=== PATIENT | female | born 1935 | race Caucasian/White ===

== ENCOUNTER 2017-11-13 09:50 | Inpatient (IN) | payer MEDICARE, MEDICAID ==
[~2017-11-13] VITALS: Ht 162.6 cm; Wt 52.7 kg
[~2017-11-13 09:50] MED LIST: CALC-758 PO; FISH OIL 1,2001 EAC1 PO; HYDR-3454 PO; LVT.1T PO; OMEP20TA2 PO; [UNRECOGNIZED DRUG - CODE] PO
[2017-11-13 11:05] VITALS: BP 162/80
[2017-11-13] MEDS ORDERED: LEVO75TA6 PO (13:17)
[2017-11-13] MEDS ORDERED: NAPR500T4 PO (13:19)
[2017-11-13] MEDS ORDERED: OMEP20CA12 PO (13:19)
[2017-11-13] MEDS ORDERED: THROMBIN SPRAY KIT 5,000 UNIT VIAL TP NR (13:45)
--- NOTE | 2017-11-13 14:35 | History & Physical-Hospitalist ---
HPI History of Present Illness: HPI/Chief Complaint The patient is an 82-year-old white female referred here from [place] emergency room. She states that this morning while drinking coffee she felt the need to cough. She coughed up blood and began to have blood dripping from the left side of her nose. This continued. The workup with the emergency room there showed the platelet count to be low. It was repeated and reported at 0. She was then referred here for further workup. She has a past history of large B cell non-Hodgkin's lymphoma. This was initially treated in [place]. She later had a recurrence with a large neck mass and was treated here by Dr. Martínez. She was last seen here by Dr. Martínez in 2014. Source: patient, family Exam Limitations: no limitations Date Seen 11/13/17 Time Seen by Provider: 14:33 Attending Physician Simone Uribe MD PCP Tian Saleh DO Referring Physician Date of Admission Nov 13, 2017 at 11:25 Home Medications & Allergies Home Medications Reviewed patient Home Medication Reconciliation Form Allergies Allergies Coded Allergies No Known Drug Allergies (Unverified12/31/12) Past Sptnzlj-Avzkzp-Yokjwf Hx Patient Social History Alcohol Use: Occasionally Uses Recreational Drug Use: No Smoking Status: Former Smoker Physical Abuse Screen: No Sexual Abuse: No Recent Foreign Travel: No Contact w/other who traveled: No Recent Hopitalizations: No Recent Infectious Disease Expo: No Immunizations Up To Date Pediatric: Yes Date of Influenza Vaccine: Jul 03, 2017 Seasonal Allergies Seasonal Allergies: No Surgeries Yes Respiratory No Currently Using CPAP: No Cardiovascular Yes (BP WENT TOO LOW WHEN TAKING MEDS-NOT TAKING MEDICATION FOR BP) Neurological No Genitourinary No Gastrointestinal No Musculoskeletal Yes (RHEUMATOID ARTHRITIS) Endocrine History of Endocrine Disorders: Yes HEENT History of HEENT Disorders: No Cancer Yes Lymphoma Cancer Comment: NON HODGKINS LYMPHOMA Psychosocial History of Psychiatric Problem: No Integumentary History of Skin or Integumenta: No Blood Transfusions History of Blood Disorders: No Family Medical History Family Hx: Asthma 19 MOTHER Review of Systems Constitutional: see HPI EENTM: no symptoms reported Respiratory: no symptoms reported Cardiovascular: no symptoms reported Gastrointestinal: no symptoms reported Genitourinary: no symptoms reported Musculoskeletal: no symptoms reported Skin: no symptoms reported Psychiatric/Neurological: No Symptoms Reported Physical Exam Physical Exam Vital Signs Vital Signs - First Documented 11/13/17 11:05 Temp 97.8 Pulse 91 Resp 20 B/P (MAP) 162/80 (107) Pulse Ox 100 O2 Delivery Room Air Capillary Refill : General Appearance: No Apparent Distress, WD/WN Eyes: Bilateral Eye Normal Inspection HEENT: Other (scant amount of crusted blood at the left there are) Neck: Full Range of Motion, Normal Inspection, Non Tender, Supple, Carotid Bruit Respiratory: Chest Non Tender, Lungs Clear, Normal Breath Sounds, No Accessory Muscle Use, No Respiratory Distress Cardiovascular: Regular Rate, Rhythm, No Edema, No Gallop, No JVD, No Murmur, Normal Peripheral Pulses Gastrointestinal: Normal Bowel Sounds, No Organomegaly, No Pulsatile Mass, Non Tender, Soft Extremity: Normal Capillary Refill, Normal Inspection, Normal Range of Motion, Non Tender, No Calf Tenderness, No Pedal Edema Neurologic/Psychiatric: Alert, Oriented x3, No Motor/Sensory Deficits, Normal Mood/Affect Skin: Normal Color, Warm/Dry Lymphatic: No Adenopathy Results Results/Procedures Lab Laboratory Tests 11/13/17 14:35 11/13/17 19:25 11/14/17 05:38 Assessment/Plan Admission Diagnosis Spontaneous epistaxis 2.extreme thrombocytopenia 3.past history of B-cell non- Hodgkin's lymphoma Assessment and Plan Hematology consultation. ENT consultation with Dr. Almaguer although the patient was not bleeding at time of examination Clinical Quality Measures DVT/VTE Risk/Contraindication: Risk Factor Score Per Nursin RFS Level Per Nursing on Admit: 2=Moderate Other: Thrombocytopenia, platelet count 0 SIMONE URIBE MD Nov 13, 2017 14:35
[2017-11-13 14:51] LABS: BASOPHILS # (AUTO) 0.1 10^3/uL (0.0-0.1); BASOPHILS % (AUTO) 1 % (0-10); EOSINOPHILS # (AUTO) 0.2 10^3/uL (0.0-0.3); EOSINOPHILS % (AUTO) 3 % (0-10); HEMATOCRIT 30 % (35-52); HEMOGLOBIN 10.3 G/DL (11.5-16.0); LYMPHOCYTES # (AUTO) 2.2 X 10^3 (1.0-4.0); LYMPHOCYTES % (AUTO) 28 % (12-44); MEAN CORPUSCULAR HEMOGLOBIN 33 PG (25-34); MEAN CORPUSCULAR HGB CONC 34 G/DL (32-36); MEAN CORPUSCULAR VOLUME 96 FL (80-99); MEAN PLATELET VOLUME 10.9 FL (7.4-10.4); MONOCYTES # (AUTO) 1.6 X 10^3 (0.0-1.0); MONOCYTES % (AUTO) 21 % (0-12); NEUTROPHILS # (AUTO) 3.6 X 10^3 (1.8-7.8); NEUTROPHILS % (AUTO) 47 % (42-75); RED BLOOD COUNT 3.15 10^6/uL (4.35-5.85); RED CELL DISTRIBUTION WIDTH 13.2 % (10.0-14.5); WHITE BLOOD COUNT 7.7 10^3/uL (4.3-11.0)
[2017-11-13 14:55] LABS: PLATELET COUNT 6 10^3/uL (130-400)
[2017-11-13 15:10] LABS: BAND NEUTROPHILS 2 %; BASOPHILS % (MANUAL) 1 %; EOSINOPHILS % (MANUAL) 4 %; LYMPHOCYTES % (MANUAL) 25 %; METAMYELOCYTES % 1 %; MONOCYTES % (MANUAL) 19 %; NEUTROPHILS % (MANUAL) 48 %; RBC MORPH NORMAL
[2017-11-13 16:00] VITALS: BP 137/86
--- NOTE | 2017-11-13 16:54 | Progress Note-Standard ---
Standard Progress Note Progress Notes/Assess & Plan Date Seen by Provider: Nov 13, 2017 Time Seen by Provider: 16:45 Progress/Assessment & Plan ENT-Jam Patient seen and evaluated Epistaxis-left anterior this am-took along time to stop platelet count 0 easy bruising and bleeding recently orthostatic sympotms for the past several months bleeding has stopped now Exam Nose-small amount of old blood seen on the left side-no active bleeding oral cavbity-clear no new or old blood would recommende ocean nasal spary to bedside to keep nose moist neosynephirne 1/2% two quirts to the side that is bleeding if it starts to bleed again if that is used then hold nose for ten minutes if still bleeding then use tw squirts of the thomrbin spary-if cant get it to sstop then call us Final Diagnosis LEft Anterior Epistaxis Thrombocytopenia History of Lymphoma DAVID CARROLL MD Nov 13, 2017 4:53 pm
[2017-11-13] MEDS ORDERED: NS IV 500 ML 500 ML IV ONE (17:00)
[2017-11-13 17:20] VITALS: BP 151/87
[2017-11-13] MEDS ORDERED: SALINE NASAL SPRAY (OCEAN) 45 ML BTL PRN (17:30)
[2017-11-13] MEDS ORDERED: PHENYLEPHRINE 0.5% NASAL SPR (NEO-SYNEPHRINE) REG PRN (17:30)
[2017-11-13 17:41] VITALS: BP 149/86
[2017-11-13 18:38] VITALS: BP 149/68
[2017-11-13 19:38] LABS: BASOPHILS # (AUTO) 0.1 10^3/uL (0.0-0.1); BASOPHILS % (AUTO) 1 % (0-10); EOSINOPHILS # (AUTO) 0.2 10^3/uL (0.0-0.3); EOSINOPHILS % (AUTO) 3 % (0-10); HEMATOCRIT 29 % (35-52); LYMPHOCYTES # (AUTO) 2.3 X 10^3 (1.0-4.0); LYMPHOCYTES % (AUTO) 25 % (12-44); MEAN CORPUSCULAR HEMOGLOBIN 33 PG (25-34); MEAN CORPUSCULAR HGB CONC 35 G/DL (32-36); MEAN CORPUSCULAR VOLUME 95 FL (80-99); MEAN PLATELET VOLUME 9.4 FL (7.4-10.4); MONOCYTES % (AUTO) 22 % (0-12); NEUTROPHILS # (AUTO) 4.7 X 10^3 (1.8-7.8); NEUTROPHILS % (AUTO) 50 % (42-75); RED BLOOD COUNT 3.05 10^6/uL (4.35-5.85); WHITE BLOOD COUNT 9.4 10^3/uL (4.3-11.0)
[2017-11-13 19:41] LABS: PLATELET COUNT 37 10^3/uL (130-400)
[2017-11-13 20:46] VITALS: BP 110/60
--- NOTE | 2017-11-13 21:45 | CONSULTATION REPORT ---
DATE OF SERVICE: 11/13/2017 REFERRING PHYSICIAN: Simone Tolbert M.D. The patient is admitted to room #419. IMPRESSION: 1. An 82-year-old female transferred from [facility] in [place] with epistaxis. 2. Preliminary CBC showing platelet count of 0. 3. Previous history of non-Hodgkin's lymphoma, T-cell rich large B-cell type initially diagnosed in 2000 requiring chemotherapy and recurrence in 2012 requiring further chemotherapy. RECOMMENDATIONS: 1. Repeat CBC with the peripheral smear for review. 2. Transfuse 1 unit of platelets because of intermittent epistaxis and marked thrombocytopenia. 3. Repeat CBC in one-half to 1 hour after platelet transfusion. 3. We will plan on obtaining a bone marrow aspiration and biopsy tomorrow morning. 4. I will follow the patient with you and make appropriate recommendations. BRIEF HISTORY: The patient is an 82-year-old female, who gave a history of increased bruising for the last few weeks and epistaxis earlier today. As the bleeding was significant, she was taken to the [facility] in [place] from where she was transferred to the emergency room at [facility] and admitted for further management. She denied any hematochezia or melena. No other episodes of significant bleeding. No history of falls. No fevers or other viral infections within the last month. Her initial CBC done at [place] had shown platelet count of 0 and hence the admission to the hospital as well as the hematology consult. PAST MEDICAL HISTORY: Significant for non-Hodgkin's lymphoma, T-cell rich large B-cell type initially diagnosed in 2000 and treated with chemotherapy in [place]. 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 Following this, she was on maintenance Rituxan for 2 years, which was completed in mid 2014. The patient did not keep any follow up appointments since then and was lost to followup. Other significant medical history include hypothyroidism diagnosed in 2010 and on replacement. Osteoarthritis for approximately 20 years. PAST SURGICAL HISTORY: Include tonsillectomy and adenoidectomy at the age of 7; appendectomy in 1970; lymph node biopsy from the left neck in 2000, when a lymphoma was first diagnosed. She underwent a TAHBSO in 2001; 2012, left neck lymph node biopsy when recurrence of lymphoma was diagnosed. FAMILY AND SOCIAL HISTORY: The patient is and lives in [place], [place]. She has 3 children, a son and 2 daughters, all of whom live close by. 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 She has used alcohol and tobacco socially for a few years when she was young. No history of recreational drug use. FAMILY HISTORY: Significant for her brother, who was diagnosed with lung cancer in she has a late 60s or 70s. No other significant malignancies in the family that the patient knows of. PHYSICAL EXAMINATION: GENERAL: Today showed an elderly female, well developed and nourished, awake and oriented, in no acute distress. HEENT: Normocephalic, extraocular muscles intact, oral mucosa moist. NECK: Supple with no JVD. No cervical, supraclavicular, axillary or inguinal lymphadenopathy palpable. CHEST: Symmetrical. LUNGS: Fairly clear to auscultation without wheezes or rales. CARDIOVASCULAR: Regular in rate and rhythm. No murmurs or gallops heard. ABDOMEN: Soft, nontender with no hepatosplenomegaly or other masses palpable. EXTREMITIES: Showed no edema. Petechiae noted in both lower extremities. A few areas of ecchymosis noted on both upper extremities and the trunk. NEUROLOGIC: Grossly intact without focal motor deficits. LABORATORY DATA: CBC done today showed WBC 7.7, hemoglobin 10.3, MCV 96, platelet count 6,000 with neutrophil count 3.6, lymphocyte count 2.2 and monocyte count 1.6. I reviewed the peripheral smear, which showed no evidence of platelet clumps. Platelets were markedly decreased with a few giant platelets noted on the smear. The neutrophils appeared unremarkable except the cytoplasm were slightly washed out. Monocytes were increased in number. No immature cells identified. Red blood cells appeared unremarkable with no evidence of hypochromia. Thank you for allowing me to participate in this patient's care. I will follow the patient with you. Job ID: [id number] DocumentID: [id number] Dictated Date: 11/13/2017 16:57:54 Law Researcher Date: 11/13/2017 21:45:39 Dictated By: ELDER DAVIS MD
[2017-11-14] VITALS: BP 120/70
[2017-11-14 04:00] VITALS: BP 120/63
[2017-11-14 06:26] LABS: BASOPHILS # (AUTO) 0.1 10^3/uL (0.0-0.1); BASOPHILS % (AUTO) 1 % (0-10); EOSINOPHILS # (AUTO) 0.3 10^3/uL (0.0-0.3); EOSINOPHILS % (AUTO) 3 % (0-10); HEMATOCRIT 27 % (35-52); HEMOGLOBIN 9.4 G/DL (11.5-16.0); LYMPHOCYTES # (AUTO) 2.1 X 10^3 (1.0-4.0); LYMPHOCYTES % (AUTO) 28 % (12-44); MEAN CORPUSCULAR HEMOGLOBIN 33 PG (25-34); MEAN CORPUSCULAR HGB CONC 34 G/DL (32-36); MEAN CORPUSCULAR VOLUME 95 FL (80-99); MEAN PLATELET VOLUME 13.2 FL (7.4-10.4); MONOCYTES # (AUTO) 1.9 X 10^3 (0.0-1.0); MONOCYTES % (AUTO) 26 % (0-12); NEUTROPHILS # (AUTO) 3.1 X 10^3 (1.8-7.8); NEUTROPHILS % (AUTO) 42 % (42-75); RED BLOOD COUNT 2.88 10^6/uL (4.35-5.85); RED CELL DISTRIBUTION WIDTH 13.3 % (10.0-14.5); WHITE BLOOD COUNT 7.5 10^3/uL (4.3-11.0)
[2017-11-14 06:28] LABS: PLATELET COUNT 15 10^3/uL (130-400)
[2017-11-14 06:54] LABS: ALANINE AMINOTRANSFERASE 21 U/L (0-55); ALKALINE PHOSPHATASE 92 U/L (40-136); BILIRUBIN,TOTAL 1.2 MG/DL (0.1-1.0); BUN/CREATININE RATIO 18; CALCIUM 9.1 MG/DL (8.5-10.1); CARBON DIOXIDE 24 MMOL/L (21-32); CHLORIDE 103 MMOL/L (98-107); CREATININE SERUM 0.82 MG/DL (0.60-1.30); GFR ESTIMATED > 60; GLUCOSE 89 MG/DL (70-105); SODIUM 139 MMOL/L (135-145); TOTAL PROTEIN 7.1 GM/DL (6.4-8.2)
[2017-11-14 08:00] VITALS: BP 144/63
--- NOTE | 2017-11-14 09:56 | Progress Note-Hospitalist ---
Standard Progress Note Progress Notes/Assess & Plan Date Seen 11/14/17 Time Seen by Provider: 09:54 Diagnosis Spontaneous epistaxis 2.extreme thrombocytopenia 3.past history of B-cell non- Hodgkin's lymphoma Assess & Plan/Chief Complaint The patient had a reasonably restful night. There is been only in minimum blood flow from the nose. She received one platelet pack which caused her platelets to rise immediately to 37,000 and they are 15,000 now. She expects to have her bone marrow done at approximately 10 o'clock this morning. We hope this will clear the issue of the thrombocytopenia. Physical exam: she is alert and oriented. She appears quite comfortable. Lungs are clear to auscultation. CV is regular. No ecchymoses are noted. Impression: Epistaxis now controlled. Thrombocytopenia. Plan: Observe. Await bone marrow biopsy. Labs Laboratory Tests 11/13/17 14:35 11/13/17 19:25 11/14/17 05:38 AMPARO URIBE MD Nov 14, 2017 09:56
[2017-11-14 12:00] VITALS: BP 144/78
[2017-11-14 13:06] LABS: ABSOLUTE RETIC # 138 10e9/L (24-90); RETICULOCYTE % 4.81 % (0.50-2.40)
[2017-11-14 14:02] LABS: EOSINOPHILS % (MANUAL) 2 %; LYMPHOCYTES % (MANUAL) 30 %; MONOCYTES % (MANUAL) 17 %; NEUTROPHILS % (MANUAL) 51 %
[2017-11-14 14:03] LABS: POLYCHROMASIA SLIGHT
[2017-11-14 16:00] VITALS: BP 144/75
--- NOTE | 2017-11-14 17:12 | Progress Note-Standard ---
Standard Progress Note Progress Notes/Assess & Plan Date Seen by Provider: Nov 14, 2017 Time Seen by Provider: 11:45 Progress/Assessment & Plan Procedure: Bone marrow aspiration and biopsy. Indication: Thrombocytopenia, history of lymphoma. The procedure, indications and complications were explained to the patient and her daughter and an informed consent was signed. Patient was placed in the left lateral decubitus position and the right posterior superior iliac spine area was prepped and draped. Local anesthesia using 2 percent Xylocaine was given. An [place] needle was passed in and an aspirate obtained on first attempt. The [place] needle was removed and a Jamshidi needle was introduced and a biopsy was obtained on first attempt also. Adequate hemostasis was obtained and sterile Band-Aid applied. Specimen was sent to the lab for appropriate testing including flow cytometry and cytogenetics. Patient tolerated the procedure well. ELDER DAVIS Nov 14, 2017 17:12
[2017-11-14 17:57] LABS: HEMATOCRIT 29 % (35-52); HEMOGLOBIN 9.9 G/DL (11.5-16.0); MEAN CORPUSCULAR HEMOGLOBIN 33 PG (25-34); MEAN CORPUSCULAR HGB CONC 34 G/DL (32-36); MEAN CORPUSCULAR VOLUME 95 FL (80-99); RED BLOOD COUNT 3.04 10^6/uL (4.35-5.85); RED CELL DISTRIBUTION WIDTH 13.2 % (10.0-14.5); WHITE BLOOD COUNT 8.3 10^3/uL (4.3-11.0)
[2017-11-14 17:59] LABS: PLATELET COUNT 12 10^3/uL (130-400)
[2017-11-14 20:00] VITALS: BP 121/59
[2017-11-15] VITALS (7 sets, daily range): BP systolic 110–143; BP diastolic 53–72
[2017-11-15 05:40] LABS: BASOPHILS # (AUTO) 0.1 10^3/uL (0.0-0.1); BASOPHILS % (AUTO) 1 % (0-10); EOSINOPHILS # (AUTO) 0.2 10^3/uL (0.0-0.3); EOSINOPHILS % (AUTO) 3 % (0-10); HEMATOCRIT 28 % (35-52); HEMOGLOBIN 9.7 G/DL (11.5-16.0); LYMPHOCYTES # (AUTO) 1.9 X 10^3 (1.0-4.0); LYMPHOCYTES % (AUTO) 26 % (12-44); MEAN CORPUSCULAR HEMOGLOBIN 32 PG (25-34); MEAN CORPUSCULAR HGB CONC 35 G/DL (32-36); MEAN CORPUSCULAR VOLUME 94 FL (80-99); MEAN PLATELET VOLUME 12.6 FL (7.4-10.4); MONOCYTES # (AUTO) 1.8 X 10^3 (0.0-1.0); MONOCYTES % (AUTO) 25 % (0-12); NEUTROPHILS # (AUTO) 3.4 X 10^3 (1.8-7.8); NEUTROPHILS % (AUTO) 46 % (42-75); RED BLOOD COUNT 2.99 10^6/uL (4.35-5.85); RED CELL DISTRIBUTION WIDTH 13.3 % (10.0-14.5); WHITE BLOOD COUNT 7.5 10^3/uL (4.3-11.0)
[2017-11-15 05:57] LABS: ALANINE AMINOTRANSFERASE 21 U/L (0-55); ALKALINE PHOSPHATASE 88 U/L (40-136); BILIRUBIN,TOTAL 1.1 MG/DL (0.1-1.0); BUN/CREATININE RATIO 16; CALCIUM 9.3 MG/DL (8.5-10.1); CARBON DIOXIDE 25 MMOL/L (21-32); CHLORIDE 99 MMOL/L (98-107); CREATININE SERUM 0.82 MG/DL (0.60-1.30); GFR ESTIMATED > 60; GLUCOSE 92 MG/DL (70-105); PLATELET COUNT 9 10^3/uL (130-400); SODIUM 132 MMOL/L (135-145)
--- NOTE | 2017-11-15 11:28 | Progress Note-Hospitalist ---
Progress Note HPI/CC on Admission The patient is an 82-year-old white female referred here from [place] emergency room. She states that this morning while drinking coffee she felt the need to cough. She coughed up blood and began to have blood dripping from the left side of her nose. This continued. The workup with the emergency room there showed the platelet count to be low. It was repeated and reported at 0. She was then referred here for further workup. She has a past history of large B cell non-Hodgkin's lymphoma. This was initially treated in [place]. She later had a recurrence with a large neck mass and was treated here by Dr. Martínez. She was last seen here by Dr. Martínez in 2014. Progress Notes/Assess & Plan Date Seen 11/15/17 Time Seen by Provider: 10:40 Diagonsis/Assessment & Plan Patient doing much better and no epistaxis Bone marrow yesterday results pending Patient is having bowel movements without blood and urinating well Needs walker No fever, vital signs stable, pleasant, improved Regular rate and rhythm, clear to auscultation bilaterally No edema Laboratory Tests 11/14/17 17:48 11/15/17 05:19 Assessment: Severe epistaxis Severe thrombocytopenia History of lymphoma managed by Dr. Martínez Hypothyroidism Anemia Hyponatremia GERD Plan: Await bone marrow results Appreciate Dr. Martínez's help BEVERLY MEZA DO Nov 15, 2017 11:28
[2017-11-15] MEDS ORDERED: PANTOPRAZOLE 20 MG TABLET (PROTONIX) PO PRN (11:45)
--- NOTE | 2017-11-15 14:27 | Progress Note-Standard ---
Standard Progress Note Progress Notes/Assess & Plan Date Seen by Provider: Nov 15, 2017 Time Seen by Provider: 14:22 Progress/Assessment & Plan 82-year-old female with history of T-cell rich large B-cell lymphoma initially diagnosed in 2000 with recurrence in 2012, status post chemotherapy on both occasions with a good response. Admitted with epistaxis and platelet count of 0 , status post platelet transfusion. Completed bone marrow evaluation yesterday. Preliminary report of bone marrow discuss with Dr. Painting. No obvious features of marrow involvement by lymphoma and no evidence of MDS currently. 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 Will start patient on prednisone 50 mg daily with food in the morning. If stable, may discharge patient home tomorrow. She will need CBCs on Mondays and at [place] with results faxed to the cancer center. She has a two- week follow-up scheduled with me to review the final bone marrow report and was instructed to keep this appointment. If she has any new or unusual symptoms prior to follow-up, she was instructed to contact us. ELDER DAVIS Nov 15, 2017 14:27
[2017-11-15] MEDS ORDERED: NS IV 500 ML 500 ML ONE (14:48)
[2017-11-15] MEDS ORDERED: predniSONE 20 MG TAB PO NR (15:30)
[2017-11-16] VITALS: BP 118/62
[2017-11-16 06:24] LABS: BASOPHILS % (AUTO) 0 % (0-10); EOSINOPHILS # (AUTO) 0.1 10^3/uL (0.0-0.3); EOSINOPHILS % (AUTO) 1 % (0-10); HEMATOCRIT 27 % (35-52); HEMOGLOBIN 9.6 G/DL (11.5-16.0); LYMPHOCYTES # (AUTO) 1.6 X 10^3 (1.0-4.0); LYMPHOCYTES % (AUTO) 19 % (12-44); MEAN CORPUSCULAR HEMOGLOBIN 33 PG (25-34); MEAN CORPUSCULAR HGB CONC 35 G/DL (32-36); MEAN CORPUSCULAR VOLUME 93 FL (80-99); MEAN PLATELET VOLUME 12.8 FL (7.4-10.4); MONOCYTES # (AUTO) 0.9 X 10^3 (0.0-1.0); MONOCYTES % (AUTO) 10 % (0-12); NEUTROPHILS % (AUTO) 70 % (42-75); PLATELET COUNT 50 10^3/uL (130-400); RED BLOOD COUNT 2.93 10^6/uL (4.35-5.85); RED CELL DISTRIBUTION WIDTH 13.6 % (10.0-14.5); WHITE BLOOD COUNT 8.6 10^3/uL (4.3-11.0)
[2017-11-16] MEDS ORDERED: predniSONE 20 MG TAB PO SCH (07:00)
[2017-11-16 07:02] LABS: ALANINE AMINOTRANSFERASE 20 U/L (0-55); ALBUMIN 4.1 GM/DL (3.2-4.5); ALKALINE PHOSPHATASE 85 U/L (40-136); BILIRUBIN,TOTAL 0.6 MG/DL (0.1-1.0); BUN/CREATININE RATIO 18; CALCIUM 9.2 MG/DL (8.5-10.1); CARBON DIOXIDE 21 MMOL/L (21-32); CHLORIDE 98 MMOL/L (98-107); CREATININE SERUM 0.79 MG/DL (0.60-1.30); GFR ESTIMATED > 60; GLUCOSE 135 MG/DL (70-105); POTASSIUM 4.7 MMOL/L (3.6-5.0); SODIUM 133 MMOL/L (135-145); TOTAL PROTEIN 7.4 GM/DL (6.4-8.2)
[2017-11-16 08:00] VITALS: BP 139/69
[2017-11-16] MEDS ORDERED: LEVOTHYROXINE 75 MCG (LEVOTHROID) TABLET PO SCH (09:00)
[2017-11-16] MEDS ORDERED: PRED10TA22 PO (10:55)
--- NOTE | 2017-11-16 10:59 | Discharge Summary-Hospitalist ---
Diagnosis/Chief Complaint Date of Admission Nov 13, 2017 at 11:25 Date of Discharge Discharge Date: Nov 16, 2017 Admission Diagnosis Spontaneous epistaxis 2.extreme thrombocytopenia 3.past history of B-cell non- Hodgkin's lymphoma Discharge Diagnosis Assessment: Severe epistaxis Severe thrombocytopenia likley ITP History of lymphoma managed by Dr. Martínez Hypothyroidism Anemia Hyponatremia GERD Plan: Await bone marrow results Appreciate Dr. Martínez's help Discharge Summary Discharge Physical Examination Allergies: Coded Allergies: No Known Drug Allergies (Unverified , 12/31/12) Vitals & I&Os Vital Signs Date Time Temp Pulse Resp B/P (MAP) Pulse Ox O2 Delivery O2 Flow Rate FiO2 11/16/17 08:00 97.1 99 18 139/69 (92) 100 Room Air Hospital Course Hospital course: Patient was transferred for severe epistaxis Dr. Almaguer was consulted and thrombocytopenia was noted to be [address] Martínez was consulted since he was familiar with the patient due to lymphoma in 2011. Bone marrow biopsy was obtained prednisone was empirically initiated with good results with platelets of 50,000 at time of discharge. She reports that she was eating and drinking no further epistaxis or blood in the stool or urine and she was able to walk around and requested a walker which social worker aide arranged. She will have a CBC done every Monday and [facility] and obtain an appointment with Dr. Vargas for follow-up in 2 weeks for bone marrow results. Laboratory Tests 11/16/17 05:35 Labs (last 24 hrs) Laboratory Tests 11/16/17 05:35: White Blood Count 8.6, Red Blood Count 2.93L, Hemoglobin 9.6L, Hematocrit 27L, Mean Corpuscular Volume 93, Mean Corpuscular Hemoglobin 33, Mean Corpuscular Hemoglobin Concent 35, Red Cell Distribution Width 13.6, Platelet Count 50L, Mean Platelet Volume 12.8H, Neutrophils (%) (Auto) 70, Lymphocytes (%) (Auto) 19 , Monocytes (%) (Auto) 10, Eosinophils (%) (Auto) 1, Basophils (%) (Auto) 0, Neutrophils # (Auto) 6.0, Lymphocytes # (Auto) 1.6, Monocytes # (Auto) 0.9, Eosinophils # (Auto) 0.1, Basophils # (Auto) 0.0, Sodium Level 133L, Potassium Level 4.7, Chloride Level 98, Carbon Dioxide Level 21, Anion Gap 14, Blood Urea Nitrogen 14, Creatinine 0.79, Estimat Glomerular Filtration Rate > 60, BUN/ Creatinine Ratio 18, Glucose Level 135H, Calcium Level 9.2, Total Bilirubin 0.6 , Aspartate Amino Transf (AST/SGOT) 33, Alanine Aminotransferase (ALT/SGPT) 20, Alkaline Phosphatase 85, Total Protein 7.4, Albumin 4.1 Pending Labs Laboratory Tests 11/16/17 05:35: White Blood Count 8.6, Red Blood Count 2.93, Hemoglobin 9.6, Hematocrit 27, Mean Corpuscular Volume 93, Mean Corpuscular Hemoglobin 33, Mean Corpuscular Hemoglobin Concent 35, Red Cell Distribution Width 13.6, Platelet Count 50, Mean Platelet Volume 12.8, Neutrophils (%) (Auto) 70, Lymphocytes (%) (Auto) 19 , Monocytes (%) (Auto) 10, Eosinophils (%) (Auto) 1, Basophils (%) (Auto) 0, Neutrophils # (Auto) 6.0, Lymphocytes # (Auto) 1.6, Monocytes # (Auto) 0.9, Eosinophils # (Auto) 0.1, Basophils # (Auto) 0.0, Sodium Level 133, Potassium Level 4.7, Chloride Level 98, Carbon Dioxide Level 21, Anion Gap 14, Blood Urea Nitrogen 14, Creatinine 0.79, Estimat Glomerular Filtration Rate > 60, BUN/ Creatinine Ratio 18, Glucose Level 135, Calcium Level 9.2, Total Bilirubin 0.6, Aspartate Amino Transf (AST/SGOT) 33, Alanine Aminotransferase (ALT/SGPT) 20, Alkaline Phosphatase 85, Total Protein 7.4, Albumin 4.1 Discharge Home Medications: Active Scripts Active Prednisone 10 Mg Tab.ds.pk 50 Mg PO DAILY Take 6 tabs(60mg)daily,decrease by 1 tab(10mg)every other day. Reported Omeprazole 20 Mg Capsule.dr 20 Mg PO DAILY PRN Naproxen 500 Mg Tablet 500 Mg PO BID PRN Levothyroxine Sodium 75 Mcg Tablet 75 Mcg PO DAILY Instructions to patient/family Please see electronic discharge instructions given to patient. Clinical Quality Measures DVT/VTE Risk/Contraindication: Risk Factor Score Per Nursin RFS Level Per Nursing on Admit: 2=Moderate Other: Thrombocytopenia, platelet count 0 BEVERLY MEZA DO Nov 16, 2017 10:59
[2017-11-16 13:30] VITALS: BP 138/78
== END 2017-11-16 13:30 | disposition home or self-care (01) | DRG 813 ==
LOC: 4TH 11:25
PROVIDERS: ADMIT Internal Medicine; ATTEND Internal Medicine
PROC: 079T3ZX Drainage of Bone Marrow, Percutaneous Approach, Diagnostic (ICD-10-PCS; principal; 2017-11-14)
PROC: 07DR3ZX Extraction of Iliac Bone Marrow, Percutaneous Approach, Diagnostic (ICD-10-PCS; 2017-11-14)
DX: D69.3 Immune thrombocytopenic purpura (principal); R04.2 Hemoptysis; R04.0 Epistaxis; C83.31 Diffuse large B-cell lymphoma, lymph nodes of head, face, and neck; E87.1 Hypo-osmolality and hyponatremia; D64.9 Anemia, unspecified; K21.9 Gastro-esophageal reflux disease without esophagitis; M06.9 Rheumatoid arthritis, unspecified; E03.9 Hypothyroidism, unspecified; M19.91 Primary osteoarthritis, unspecified site; Z87.891 Personal history of nicotine dependence; Z92.21 Personal history of antineoplastic chemotherapy
CPT/HCPCS: 36415; 80053; 83615; 85007; 85025; 85027; 85045; 86900; 86901; 93005

== ENCOUNTER 2018-02-21 08:38 | Outpatient (RCR) | payer MEDICARE, MEDICAID ==
[2017-12-11 11:12] LABS: BASOPHILS % (AUTO) 0 % (0-10); EOSINOPHILS % (AUTO) 0 % (0-10); HEMATOCRIT 39 % (35-52); LYMPHOCYTES % (AUTO) 16 % (12-44); MEAN CORPUSCULAR HEMOGLOBIN 32 PG (25-34); MEAN CORPUSCULAR HGB CONC 34 G/DL (32-36); MEAN CORPUSCULAR VOLUME 97 FL (80-99); MEAN PLATELET VOLUME 9.6 FL (7.4-10.4); MONOCYTES # (AUTO) 0.5 X 10^3 (0.0-1.0); MONOCYTES % (AUTO) 4 % (0-12); NEUTROPHILS # (AUTO) 10.1 X 10^3 (1.8-7.8); NEUTROPHILS % (AUTO) 80 % (42-75); PLATELET COUNT 183 10^3/uL (130-400); RED BLOOD COUNT 4.01 10^6/uL (4.35-5.85); RED CELL DISTRIBUTION WIDTH 13.7 % (10.0-14.5); WHITE BLOOD COUNT 12.6 10^3/uL (4.3-11.0)
[2017-12-11 11:36] LABS: ALANINE AMINOTRANSFERASE 12 U/L (0-55); ALBUMIN 4.4 GM/DL (3.2-4.5); ALKALINE PHOSPHATASE 66 U/L (40-136); BILIRUBIN,TOTAL 0.7 MG/DL (0.1-1.0); BUN/CREATININE RATIO 26; CALCIUM 9.5 MG/DL (8.5-10.1); CARBON DIOXIDE 32 MMOL/L (21-32); CHLORIDE 99 MMOL/L (98-107); CREATININE SERUM 0.89 MG/DL (0.60-1.30); GFR ESTIMATED > 60; GLUCOSE 114 MG/DL (70-105); POTASSIUM 4.4 MMOL/L (3.6-5.0); SODIUM 137 MMOL/L (135-145); TOTAL PROTEIN 7.1 GM/DL (6.4-8.2)
[2017-12-25 09:35] LABS: BASOPHILS % (AUTO) 0 % (0-10); EOSINOPHILS # (AUTO) 0.1 10^3/uL (0.0-0.3); EOSINOPHILS % (AUTO) 1 % (0-10); HEMATOCRIT 35 % (35-52); LYMPHOCYTES # (AUTO) 2.3 X 10^3 (1.0-4.0); LYMPHOCYTES % (AUTO) 24 % (12-44); MEAN CORPUSCULAR HEMOGLOBIN 33 PG (25-34); MEAN CORPUSCULAR HGB CONC 34 G/DL (32-36); MEAN CORPUSCULAR VOLUME 96 FL (80-99); MONOCYTES # (AUTO) 1.4 X 10^3 (0.0-1.0); MONOCYTES % (AUTO) 14 % (0-12); NEUTROPHILS # (AUTO) 5.9 X 10^3 (1.8-7.8); NEUTROPHILS % (AUTO) 61 % (42-75); PLATELET COUNT 153 10^3/uL (130-400); RED BLOOD COUNT 3.67 10^6/uL (4.35-5.85); RED CELL DISTRIBUTION WIDTH 13.7 % (10.0-14.5); WHITE BLOOD COUNT 9.7 10^3/uL (4.3-11.0)
[2017-12-25 10:31] LABS: ALANINE AMINOTRANSFERASE 15 U/L (0-55); ALKALINE PHOSPHATASE 65 U/L (40-136); BILIRUBIN,TOTAL 0.6 MG/DL (0.1-1.0); BUN/CREATININE RATIO 25; CALCIUM 9.3 MG/DL (8.5-10.1); CARBON DIOXIDE 32 MMOL/L (21-32); CHLORIDE 102 MMOL/L (98-107); CREATININE SERUM 0.81 MG/DL (0.60-1.30); GFR ESTIMATED > 60; GLUCOSE 98 MG/DL (70-105); POTASSIUM 4.7 MMOL/L (3.6-5.0); SODIUM 140 MMOL/L (135-145)
[2018-01-24 09:36] LABS: BASOPHILS % (AUTO) 1 % (0-10); EOSINOPHILS # (AUTO) 0.1 10^3/uL (0.0-0.3); EOSINOPHILS % (AUTO) 2 % (0-10); HEMATOCRIT 36 % (35-52); LYMPHOCYTES # (AUTO) 3.1 X 10^3 (1.0-4.0); LYMPHOCYTES % (AUTO) 35 % (12-44); MEAN CORPUSCULAR HEMOGLOBIN 31 PG (25-34); MEAN CORPUSCULAR HGB CONC 34 G/DL (32-36); MEAN CORPUSCULAR VOLUME 92 FL (80-99); MEAN PLATELET VOLUME 10.5 FL (7.4-10.4); MONOCYTES # (AUTO) 2.1 X 10^3 (0.0-1.0); MONOCYTES % (AUTO) 24 % (0-12); NEUTROPHILS # (AUTO) 3.3 X 10^3 (1.8-7.8); NEUTROPHILS % (AUTO) 38 % (42-75); PLATELET COUNT 100 10^3/uL (130-400); RED BLOOD COUNT 3.86 10^6/uL (4.35-5.85); RED CELL DISTRIBUTION WIDTH 13.4 % (10.0-14.5); WHITE BLOOD COUNT 8.6 10^3/uL (4.3-11.0)
[2018-01-24 10:01] LABS: ALANINE AMINOTRANSFERASE 11 U/L (0-55); ALBUMIN 4.1 GM/DL (3.2-4.5); ALKALINE PHOSPHATASE 90 U/L (40-136); BILIRUBIN,TOTAL 0.8 MG/DL (0.1-1.0); BUN/CREATININE RATIO 17; CALCIUM 9.3 MG/DL (8.5-10.1); CARBON DIOXIDE 25 MMOL/L (21-32); CHLORIDE 103 MMOL/L (98-107); CREATININE SERUM 0.83 MG/DL (0.60-1.30); GFR ESTIMATED > 60; GLUCOSE 102 MG/DL (70-105); SODIUM 138 MMOL/L (135-145)
[~2018-02-21 08:38] MED LIST changes: +LEVO75TA6 PO; +NAPR-915 PO; +OMEP20CA12 PO; +PRED10TA22 PO
[2018-02-21 08:59] LABS: BASOPHILS # (AUTO) 0.1 10^3/uL (0.0-0.1); BASOPHILS % (AUTO) 1 % (0-10); EOSINOPHILS # (AUTO) 0.2 10^3/uL (0.0-0.3); EOSINOPHILS % (AUTO) 2 % (0-10); HEMATOCRIT 35 % (35-52); HEMOGLOBIN 11.6 G/DL (11.5-16.0); LYMPHOCYTES # (AUTO) 3.4 X 10^3 (1.0-4.0); LYMPHOCYTES % (AUTO) 43 % (12-44); MEAN CORPUSCULAR HEMOGLOBIN 31 PG (25-34); MEAN CORPUSCULAR HGB CONC 33 G/DL (32-36); MEAN CORPUSCULAR VOLUME 92 FL (80-99); MEAN PLATELET VOLUME 10.6 FL (7.4-10.4); MONOCYTES # (AUTO) 1.7 X 10^3 (0.0-1.0); MONOCYTES % (AUTO) 22 % (0-12); NEUTROPHILS # (AUTO) 2.5 X 10^3 (1.8-7.8); NEUTROPHILS % (AUTO) 32 % (42-75); PLATELET COUNT 129 10^3/uL (130-400); RED BLOOD COUNT 3.79 10^6/uL (4.35-5.85); RED CELL DISTRIBUTION WIDTH 13.8 % (10.0-14.5); WHITE BLOOD COUNT 7.9 10^3/uL (4.3-11.0)
[2018-02-21 09:25] LABS: ALANINE AMINOTRANSFERASE 8 U/L (0-55); ALBUMIN 4.3 GM/DL (3.2-4.5); ALKALINE PHOSPHATASE 83 U/L (40-136); BILIRUBIN,TOTAL 0.7 MG/DL (0.1-1.0); BUN/CREATININE RATIO 21; CALCIUM 9.4 MG/DL (8.5-10.1); CARBON DIOXIDE 27 MMOL/L (21-32); CHLORIDE 105 MMOL/L (98-107); CREATININE SERUM 0.84 MG/DL (0.60-1.30); GFR ESTIMATED > 60; GLUCOSE 96 MG/DL (70-105); POTASSIUM 4.1 MMOL/L (3.6-5.0); SODIUM 141 MMOL/L (135-145); TOTAL PROTEIN 7.3 GM/DL (6.4-8.2)
== END 2018-02-26 | disposition home or self-care (01) ==
LOC: ONC 08:38
PROVIDERS: ATTEND Internal Medicine Hematology & Oncology
DX: D69.3 Immune thrombocytopenic purpura (principal); Z85.72 Personal history of non-Hodgkin lymphomas; E03.9 Hypothyroidism, unspecified; K21.9 Gastro-esophageal reflux disease without esophagitis; M19.91 Primary osteoarthritis, unspecified site; Z79.52 Long term (current) use of systemic steroids; Z79.899 Other long term (current) drug therapy; Z92.21 Personal history of antineoplastic chemotherapy
CPT/HCPCS: 36415; 80053; 83615; 85025; 99213

== ENCOUNTER 2018-06-13 08:52 | Outpatient (RCR) | payer MEDICARE, MEDICAID ==
[2018-06-13 09:16] LABS: BASOPHILS % (AUTO) 0 % (0-10); EOSINOPHILS # (AUTO) 0.1 10^3/uL (0.0-0.3); EOSINOPHILS % (AUTO) 1 % (0-10); HEMATOCRIT 37 % (35-52); HEMOGLOBIN 12.5 G/DL (11.5-16.0); LYMPHOCYTES # (AUTO) 2.8 X 10^3 (1.0-4.0); LYMPHOCYTES % (AUTO) 42 % (12-44); MEAN CORPUSCULAR HEMOGLOBIN 31 PG (25-34); MEAN CORPUSCULAR HGB CONC 34 G/DL (32-36); MEAN CORPUSCULAR VOLUME 91 FL (80-99); MEAN PLATELET VOLUME 10.3 FL (7.4-10.4); MONOCYTES # (AUTO) 1.8 X 10^3 (0.0-1.0); MONOCYTES % (AUTO) 26 % (0-12); NEUTROPHILS % (AUTO) 30 % (42-75); PLATELET COUNT 154 10^3/uL (130-400); RED BLOOD COUNT 4.08 10^6/uL (4.35-5.85); RED CELL DISTRIBUTION WIDTH 14.4 % (10.0-14.5); WHITE BLOOD COUNT 6.7 10^3/uL (4.3-11.0)
[2018-06-13 09:34] LABS: ALANINE AMINOTRANSFERASE 12 U/L (0-55); ALBUMIN 4.6 GM/DL (3.2-4.5); ALKALINE PHOSPHATASE 86 U/L (40-136); BILIRUBIN,TOTAL 0.8 MG/DL (0.1-1.0); BUN/CREATININE RATIO 17; CALCIUM 9.8 MG/DL (8.5-10.1); CARBON DIOXIDE 26 MMOL/L (21-32); CHLORIDE 102 MMOL/L (98-107); CREATININE SERUM 0.89 MG/DL (0.60-1.30); GFR ESTIMATED > 60; GLUCOSE 96 MG/DL (70-105); POTASSIUM 4.3 MMOL/L (3.6-5.0); SODIUM 136 MMOL/L (135-145); TOTAL PROTEIN 7.8 GM/DL (6.4-8.2)
== END 2018-07-01 | disposition home or self-care (01) ==
LOC: ONC 08:52
PROVIDERS: ATTEND Internal Medicine Hematology & Oncology
DX: D69.3 Immune thrombocytopenic purpura (principal); Z85.72 Personal history of non-Hodgkin lymphomas; D72.821 Monocytosis (symptomatic); K21.9 Gastro-esophageal reflux disease without esophagitis; E03.9 Hypothyroidism, unspecified
CPT/HCPCS: 36415; 80053; 83615; 85025; 99213

== ENCOUNTER → 2018-06-21 | Outpatient (CLI) | payer MEDICARE, MEDICAID ==
[~2018-06-21] MED LIST changes: +BARIUM SUSPENSION 2.1% (VANILLA SILQ) 450 ML PO ONE; +IOHEXOL 350 MG/ML 100 ML (OMNIPAQUE 350) VIAL IV ONE; +NS 250 ML (IVPB) BAG IV ONE
--- NOTE | 2018-06-21 15:27 | Diagnostic Imaging Report ---
PROCEDURE: CT chest with contrast, CT abdomen and pelvis with and without contrast. TECHNIQUE: Pre and post intravenous contrast axial imaging of the abdomen and pelvis and post contrast axial imaging of the chest were performed. INDICATION: Large cell lymphoma. FINDINGS: The previous CT chest, abdomen, and pelvis exam of 05/04/2015 failed to show any sign of an acute abnormality or of neoplastic disease. The images through the thorax show that in the interval since the prior exam, a few lymph nodes have developed within the pretracheal region of the mediastinum. The largest of these is on the left and measures 0.8 x 1.6 cm. There is also a pretracheal node on the right measuring 0.8 x 1.8 cm. Several lymph nodes have also developed in each axilla. The largest node on the right measures 1.2 x 1.9 cm while the largest node on the left is estimated to be 1.3 x 2.2 CM. However, this node is primarily replaced by fat. There are also a few nodes in each supraclavicular region. These measure less than 1 cm in size, however. There is no significant periaortic, retroperitoneal, iliac chain, or inguinal adenopathy noted, however. The heart size is within normal limits. There does not appear to be any significant coronary artery calcifications. The aorta is not abnormally dilated, and there is no sign of a dissection. There is no defect within the pulmonary arteries to indicate a pulmonary embolus. The lungs are generally clear. There is scar formation in both lung apices. There is no obvious breast mass. The thyroid gland is unremarkable. The spleen is more prominent than on the prior exam and now measures 11.5 cm in length as opposed to 9.1 cm previously. The liver, pancreas, adrenals, kidneys, gallbladder, aorta, and inferior vena cava are unremarkable for an acute abnormality. The stomach is partially filled with oral contrast and consequently difficult to evaluate. There is diverticulosis of the sigmoid and descending colon, but there is no sign of acute diverticulitis. The urinary bladder is grossly unremarkable. The uterus appears to be surgically absent. The appendix was not well visualized, but there are no indirect signs of acute appendicitis. The bone windows show no evidence for a fracture or for a destructive lesion. There is degenerative disc and bony disease throughout the lumbar spine. IMPRESSION: 1. There are a few borderline enlarged lymph nodes in the mediastinum and both axillary regions. These nodes are nonspecific in appearance but could be involved by neoplasm. The spleen is also more prominent than on the prior exam. If further imaging for neoplasm is desired, then a PET/CT would be recommended. 2. There is no acute abnormality of the chest, abdomen, or pelvis. Dictated by: Dictated on workstation # [id number]
== END ==
LOC: RAD 09:50
PROVIDERS: ATTEND Internal Medicine Hematology & Oncology
DX: C85.80 Other specified types of non-Hodgkin lymphoma, unspecified site (principal)
CPT/HCPCS: 71260; 74178

== ENCOUNTER 2018-07-06 06:38 | Outpatient (CLI) | payer MEDICARE, MEDICAID ==
[~2018-07-06] VITALS: Ht 162.6 cm; Wt 49.5 kg
[~2018-07-06 06:38] MED LIST changes: -BARIUM SUSPENSION 2.1% (VANILLA SILQ) 450 ML PO ONE; -IOHEXOL 350 MG/ML 100 ML (OMNIPAQUE 350) VIAL IV ONE; -NS 250 ML (IVPB) BAG IV ONE
[2018-07-06] MEDS ORDERED: OMEP20TA7 PO (12:02)
[2018-07-06] MEDS ORDERED: MECL-133 PO (12:02)
== END 2018-07-06 12:28 | disposition home or self-care (01) ==
LOC: PREOP 06:38
PROVIDERS: ATTEND Surgery
DX: Z01.818 Encounter for other preprocedural examination (principal)

== ENCOUNTER 2018-07-11 09:46 | Day surgery (SDC) | payer MEDICARE, MEDICAID ==
[~2018-07-11] VITALS: Ht 162.6 cm; Wt 49.5 kg
[~2018-07-11 09:46] MED LIST changes: +MECL-133 PO; +OMEP20TA7 PO
--- OUTSIDE RECORDS SUMMARY | 2018-07-11 09:49 | XMS REPORT ---
Author Author MIGEL REECE [facility] Address [address] [place] [address] Care Team Providers Care Knowledge Analyst Name Role Phone MIGEL REECE Unavailable PROBLEMS Unknown Problems ALLERGIES No Known Allergies ENCOUNTERS Encounter Location Date Diagnosis [id number] [id number] Jun, Dental examination Z01.[address] [id number] [id number] May, Dental examination Z01.20 [id number] [id number] May, Encounter for dental examination and cleaning without abnormal findings Z01.[id number] [id number] Apr, Encounter for dental examination and cleaning without abnormal findings Z01.20 [id number] [id number] Jul, Encounter for dental examination and cleaning without abnormal findings Z01.[address] [id number] [id number] May, Encounter for dental examination Z01.20 [id number] [facility] [id number] [id number] Nov, Encounter for dental examination and cleaning without abnormal findings Z01.20 [id number] [facility] [id number] [id number] Apr, Dental examination V72.2 IMMUNIZATIONS No Known Immunizations SOCIAL HISTORY Never Assessed REASON FOR VISIT restorative PLAN OF CARE Activity Details Follow Up prn Reason:buildup VITAL SIGNS Blood pressure systolic 132 mmHg 2017-05-23 Blood pressure diastolic 74 mmHg 2017-05-23 MEDICATIONS Medication Instructions Dosage Frequency Start Date End Date Duration Status Nortriptyline HCl Active Levothyroxine Sodium Active RESULTS No Results PROCEDURES Procedure Date Ordered Result Body Site RESIN COMPOS - ONE SURFACE ANTERIOR May 23, 2017 Billing Notes on claim May 23, 2017 INSTRUCTIONS MEDICATIONS ADMINISTERED No Known Medications MEDICAL (GENERAL) HISTORY Type Description Date Medical History thyroid Medical History arthritis Medical History cancer in 2001 and 2011 with radiation and chemo to treat
--- OUTSIDE RECORDS SUMMARY | 2018-07-11 09:49 | XMS REPORT ---
Author Author MIGEL REECE [facility] Address [address] [place] [address] Care Team Providers Care Tip Fixer Name Role Phone REECE MIGEL Unavailable PROBLEMS Unknown Problems ALLERGIES No Known Allergies ENCOUNTERS Encounter Location Date Diagnosis [id number] [id number] Jun, Dental examination Z01.20 [id number] [id number] May, Dental examination Z01.20 [address] [id number] May, Encounter for dental examination and cleaning without abnormal findings Z01.20 [id number] [id number] Apr, Encounter for dental examination and cleaning without abnormal findings Z01.20 [id number] [id number] Jul, Encounter for dental examination and cleaning without abnormal findings Z01.[address] [id number] [id number] May, Encounter for dental examination Z01.20 [id number] [facility] [id number] [id number] Nov, Encounter for dental examination and cleaning without abnormal findings Z01.20 [id number] [facility] [id number] [id number] Apr, Dental examination V72.2 IMMUNIZATIONS No Known Immunizations SOCIAL HISTORY Never Assessed REASON FOR VISIT build up PLAN OF CARE Activity Details Follow Up prn Reason:TE #13 VITAL SIGNS Blood pressure systolic 134 mmHg 2017-06-06 Blood pressure diastolic 77 mmHg 2017-06-06 MEDICATIONS Medication Instructions Dosage Frequency Start Date End Date Duration Status Nortriptyline HCl Active Levothyroxine Sodium Active RESULTS No Results PROCEDURES Procedure Date Ordered Result Body Site SEDATIVE FILLING Jun 06, 2017 Billing Notes on claim Jun 06, 2017 INSTRUCTIONS MEDICATIONS ADMINISTERED No Known Medications MEDICAL (GENERAL) HISTORY Type Description Date Medical History thyroid Medical History arthritis Medical History cancer in 2001 and 2011 with radiation and chemo to treat
--- OUTSIDE RECORDS SUMMARY | 2018-07-11 09:49 | XMS REPORT ---
Author Author KARLI MEDINA Organization [employer] Address Unknown Phone Unavailable Care Team Providers Care Fire Alarm Mechanic Name Role Phone KARLI MEDINA CP Unavailable Allergies, Adverse Reactions, Alerts Substance Reaction Event Type N.K.D.A. Info Not Available Non Drug Allergy Problems Problem Type Condition Code Onset Dates Condition Status Assessment Encounter for dental examination and cleaning without abnormal findings Z01.20 Active Problem Encounter for dental examination and cleaning without abnormal findings Z01.20 Active Medications Medication Code System Code Instructions Start Date End Date Status Dosage Levothyroxine Sodium [facility] [address]-23 not defined Nortriptyline HCl [facility] [address]-95 not defined Procedures Procedure Coding System Code Date VERTICAL BITEWINGS - 7 TO 8 FILMS CPT-4 D0277 December 16, 2015 Periodontal maint procedures CPT-4 D4910 December 16, 2015 PERIODIC ORAL EXAMINATION CPT-4 D0120 December 16, 2015 Vital Signs Date/Time: December 16, 2015 Blood Pressure Diastolic 80 mmHg Blood Pressure Systolic 142 mmHg Cardiac Monitoring Heart Rate 83 bpm Results No Known Results Summary Purpose [employer] Submission
--- OUTSIDE RECORDS SUMMARY | 2018-07-11 09:49 | XMS REPORT ---
Author Author KENIA RODRIGUEZ [employer] Address Unknown Phone Unavailable Care Team Providers Care Electrocardiograph Repairer Name Role Phone KENIA RODRIGUEZ CP Unavailable Allergies, Adverse Reactions, Alerts Substance Reaction Event Type N.K.D.A. Info Not Available Non Drug Allergy Problems Problem Type Condition Code Onset Dates Condition Status Assessment Encounter for dental examination Z01.20 Active Problem Encounter for dental examination and cleaning without abnormal findings Z01.20 Active Medications Medication Code System Code Instructions Start Date End Date Status Dosage Levothyroxine Sodium [facility] [address]-52 not defined Nortriptyline HCl [facility] [address]-38 not defined Procedures Procedure Coding System Code Date Billing Notes on claim CPT-4 EC109 May 23, 2016 [facility] SURFACE PRIMARY/PERM CPT-4 D2140 May 23, 2016 Vital Signs Date/Time: May 23, 2016 Blood Pressure Diastolic 80 mmHg Blood Pressure Systolic 145 mmHg Cardiac Monitoring Heart Rate 83 bpm Results No Known Results Summary Purpose [employer] Submission
--- OUTSIDE RECORDS SUMMARY | 2018-07-11 09:51 | XMS REPORT | Continuity of Care Document ---
Author Author [facility] Organization [facility] Address Unknown Phone Unavailable Allergies Active Description Code Type Severity Reaction Onset Reported/Identified Relationship to Patient Clinical Status Yes No Known Drug Allergies [id number] Drug Allergy Unknown N/A 07/06/2018 Medications There is no data. Problems Date Dx Coded Attending Type Code Diagnosis Diagnosed By 01/03/2013 Ot 785.6 ENLARGEMENT LYMPH NODES 01/03/2013 Ot V10.79 HX- LYMPHATIC MALIGN NEC 04/23/2013 RYAN, BOBAN N Ot 202.80 OTH LYMPHOMAS EXTRANODAL SOLID ORGAN U 08/13/2013 RYAN, BOBAN N Ot 202.80 OTH LYMPHOMAS EXTRANODAL SOLID ORGAN U 08/13/2013 RYAN, BOBAN N Ot V58.11 ENCOUNTER FOR ANTINEOPLASTIC CHEMOTHERAP 12/03/2013 RYAN, BOBAN N Ot 202.80 OTH LYMPHOMAS EXTRANODAL SOLID ORGAN U 12/03/2013 RYAN, BOBAN N Ot V58.11 ENCOUNTER FOR ANTINEOPLASTIC CHEMOTHERAP 03/26/2014 RYAN, BOBAN N Ot 202.80 OTH LYMPHOMAS EXTRANODAL SOLID ORGAN U 03/26/2014 RYAN, BOBAN N Ot V58.11 ENCOUNTER FOR ANTINEOPLASTIC CHEMOTHERAP 07/13/2014 RYAN, BOBAN N Ot 202.80 OTH LYMPHOMAS EXTRANODAL SOLID ORGAN U 07/13/2014 RYAN, BOBAN N Ot V58.11 ENCOUNTER FOR ANTINEOPLASTIC CHEMOTHERAP 10/01/2014 RYNA, BOBAN N Ot 202.80 10/01/2014 RYAN, BOBAN N Ot V04.81 10/01/2014 RYAN, BOBAN N Ot V58.11 10/22/2014 RYAN, BOBAN N Ot 202.80 10/22/2014 RYAN, BOBAN N Ot V04.81 10/22/2014 RYAN, BOBAN N Ot V58.11 10/30/2014 ESTHER CHAN Ot 202.80 10/30/2014 CHANESTHER Steele JUNIOR PROGRAMMER ANALYST Ot V58.69 10/30/2014 CHAN ESTHER Steele JUNIOR PROGRAMMER ANALYST Ot V87.41 11/02/2014 RYAN, ELDER N Ot 202.80 OTH LYMPHOMAS EXTRANODAL SOLID ORGAN U 11/02/2014 RYANSCOTT GREENWOODAN N Ot V04.81 ND FOR PROPHYLACTIC VACCIN AND INOCULATI 11/02/2014 RYANELDER GREENWOOD N Ot V58.11 ENCOUNTER FOR ANTINEOPLASTIC CHEMOTHERAP 11/06/2014 CHANESTHER Steele JUNIOR PROGRAMMER ANALYST Ot 202.80 11/06/2014 CHANESTHER Steele JUNIOR PROGRAMMER ANALYST Ot V58.69 11/06/2014 DUSTIN ESTHER Cedric JUNIOR PROGRAMMER ANALYST Ot V87.41 11/17/2014 RYANSCOTTAN N Ot 202.80 11/17/2014 RYAN, BOBAN N Ot V04.81 11/17/2014 RYAN, BOBAN N Ot V58.11 11/24/2014 RYAN, BOBAN N Ot 202.80 11/24/2014 RYAN, BOBAN N Ot V04.81 11/24/2014 RYAN, BOBAN N Ot V58.11 11/25/2014 RYAN, BOBAN N Ot 202.80 11/25/2014 RYAN, BOBAN N Ot V04.81 11/25/2014 RYAN, BOBAN N Ot V58.11 12/30/2014 RYAN, BOBAN N Ot 202.80 12/30/2014 RYAN, BOBAN N Ot V04.81 12/30/2014 RYAN, BOBAN N Ot V58.11 01/02/2015 RYAN, BOBAN N Ot 202.80 01/02/2015 RYAN, BOBAN N Ot V04.81 01/02/2015 RYAN, BOBAN N Ot V58.11 01/26/2015 RYAN, BOBAN N Ot 202.80 01/26/2015 RYAN, BOBAN N Ot V04.81 01/26/2015 RYAN, BOBAN N Ot V58.11 02/22/2015 RYAN, BOBAN N Ot 202.80 OTH LYMPHOMAS EXTRANODAL SOLID ORGAN U 02/22/2015 RYANSCOTTAN N Ot V04.81 ND FOR PROPHYLACTIC VACCIN AND INOCULATI 02/22/2015 ELDER DAVIS Ot V58.11 ENCOUNTER FOR ANTINEOPLASTIC CHEMOTHERAP 02/28/2015 DUSTINESTHER JUNIOR PROGRAMMER ANALYST Ot 202.80 02/28/2015 CHANESTHER S JUNIOR PROGRAMMER ANALYST Ot V58.69 03/13/2015 Ot 780.79 03/13/2015 Ot 785.6 03/13/2015 Ot V72.63 03/13/2015 Ot V72.81 03/13/2015 Ot V72.83 03/13/2015 Ot V74.8 03/13/2015 Ot 202.80 03/13/2015 ELDER DAVIS N Ot 202.80 03/13/2015 ELDER DAVIS N Ot 397.0 03/13/2015 ELDER DAVIS N Ot 424.0 03/13/2015 ELDER DAVIS N Ot V58.69 03/13/2015 ELDER DAVIS N Ot V58.83 03/13/2015 ELDER DAVIS N Ot V87.41 03/13/2015 DUSTIN ESTHER S JUNIOR PROGRAMMER ANALYST Ot 202.80 03/13/2015 DUSTIN ESTHER S JUNIOR PROGRAMMER ANALYST Ot V58.69 03/13/2015 CHAN, ESTHER S JUNIOR PROGRAMMER ANALYST Ot V87.41 03/13/2015 DUSTIN ESTHER S JUNIOR PROGRAMMER ANALYST Ot 202.80 03/13/2015 DUSTIN ESTHER S JUNIOR PROGRAMMER ANALYST Ot V58.69 03/13/2015 CHAN, ESTHER S JUNIOR PROGRAMMER ANALYST Ot V87.41 03/13/2015 CHAN, ESTHER S JUNIOR PROGRAMMER ANALYST Ot 202.80 03/13/2015 CHAN JAMSHIDAH S JUNIOR PROGRAMMER ANALYST Ot 202.80 03/13/2015 CHAN ESTHER S JUNIOR PROGRAMMER ANALYST Ot V58.69 03/13/2015 CHAN ESTHER S JUNIOR PROGRAMMER ANALYST Ot 202.80 03/13/2015 CHAN JAMSHIDAH S JUNIOR PROGRAMMER ANALYST Ot V58.69 03/13/2015 CHAN JAMSHIDAH S JUNIOR PROGRAMMER ANALYST Ot 202.80 03/13/2015 CHAN JAMSHIDAH S JUNIOR PROGRAMMER ANALYST Ot V58.69 03/13/2015 CHAN, ESTHER S JUNIOR PROGRAMMER ANALYST Ot 202.80 03/13/2015 CHAN JAMSHIDAH S JUNIOR PROGRAMMER ANALYST Ot V58.69 03/13/2015 CHAN ESTHER S JUNIOR PROGRAMMER ANALYST Ot 202.80 03/13/2015 ESTHER CHAN JUNIOR PROGRAMMER ANALYST Ot V58.69 03/13/2015 ESTHER CHAN S JUNIOR PROGRAMMER ANALYST Ot 202.80 03/13/2015 ESTHER CHAN S JUNIOR PROGRAMMER ANALYST Ot V58.69 03/13/2015 ESTHER CHAN S JUNIOR PROGRAMMER ANALYST Ot V87.41 03/13/2015 ESTHER CHAN S JUNIOR PROGRAMMER ANALYST Ot 202.80 03/13/2015 ESTHER CHAN S JUNIOR PROGRAMMER ANALYST Ot V58.69 03/13/2015 RYAN, BOBAN N Ot 202.80 03/13/2015 RYAN, BOBAN N Ot V04.81 03/13/2015 RYAN, BOBAN N Ot V58.11 03/13/2015 CAMILO AUGUSTIN Ot 722.4 03/13/2015 CAMILO AUGUSTIN Ot 782.0 03/16/2015 RYAN, BOBAN N Ot 202.80 03/16/2015 RYAN, BOBAN N Ot V04.81 03/16/2015 RYAN, BOBAN N Ot V58.11 03/23/2015 RYAN, BOBAN N Ot 202.80 03/23/2015 RYAN, BOBAN N Ot V04.81 03/23/2015 RYAN, BOBAN N Ot V58.11 03/23/2015 ESTHER CHNA JUNIOR PROGRAMMER ANALYST Ot 202.80 03/23/2015 ESTHER CHAN JUNIOR PROGRAMMER ANALYST Ot V58.69 03/24/2015 RYAN, BOBAN N Ot 202.80 03/24/2015 RYAN, BOBAN N Ot V58.11 03/30/2015 CAMILO AUGUSTIN K Ot 722.4 03/30/2015 CAMILO AUGUSTIN K Ot 782.0 04/07/2015 CAMILO AUGUSTIN K Ot 722.4 04/07/2015 CAMILO AUGUSTIN K Ot 782.0 04/08/2015 MACK AUGUSTINNA K Ot 723.0 04/17/2015 HORTENSIA AVALOS, CAMILO K Ot 723.0 04/24/2015 RYAN, BOBAN N Ot 202.80 04/24/2015 RYAN, BOBAN N Ot V58.11 05/13/2015 RYAN, BOBAN N Ot 202.80 05/13/2015 RYAN, BOBAN N Ot V58.11 05/29/2015 ELDER DAVIS Ot 200.70 06/05/2015 ELDER DAVIS N Ot 200.70 06/21/2015 ELDER DAVIS N Ot 202.80 OTH LYMPHOMAS EXTRANODAL SOLID ORGAN U 06/21/2015 ELDER DAVIS Ot V58.11 ENCOUNTER FOR ANTINEOPLASTIC CHEMOTHERAP 06/21/2015 ELDER DAVIS Ot Z51.11 ENCOUNTER FOR ANTINEOPLASTIC CHEMOTHERAP 06/22/2015 ELDER DAVIS Ot 200.70 11/13/2017 Ot 780.79 OTH MALAISE FATIGUE 11/13/2017 Ot 785.6 ENLARGEMENT LYMPH NODES 11/13/2017 Ot V72.63 PRE- PROCEDURAL LABORATORY EXAMINATION 11/13/2017 Ot V72.81 EXAM-PRE- OPERATIVE CARDIOVASCULAR 11/13/2017 Ot V72.83 EXAM PRE- OPERATIVE NEC 11/13/2017 Ot V74.8 SCREEN- BACTERIAL DIS NEC 11/13/2017 Ot 202.80 OTH LYMPHOMAS EXTRANODAL SOLID ORGAN U 11/13/2017 ELDER DAVIS Ot 202.80 OTH LYMPHOMAS EXTRANODAL SOLID ORGAN U 11/13/2017 ELDER DAVIS N Ot 397.0 TRICUSPID VALVE DISEASE 11/13/2017 ELDER DAVIS N Ot 424.0 MITRAL VALVE DISORDER 11/13/2017 ELDER DAVIS Ot V58.69 OTH MED,LT,CURRENT USE 11/13/2017 ELDER DAVIS Ot V58.83 ENCOUNTER FOR THERAPEUTIC DRUG MONITORIN 11/13/2017 ELDER DAVIS Ot V87.41 PERSONAL HISTORY OF ANTINEOPLASTIC CHEMO 11/13/2017 ESTHER CHAN JUNIOR PROGRAMMER ANALYST Ot 202.80 OTH LYMPHOMAS EXTRANODAL SOLID ORGAN U 11/13/2017 ESTHER CHAN JUNIOR PROGRAMMER ANALYST Ot V58.69 OTH MED,LT,CURRENT USE 11/13/2017 ESTHER CHAN S JUNIOR PROGRAMMER ANALYST Ot V87.41 PERSONAL HISTORY OF ANTINEOPLASTIC CHEMO 11/13/2017 ESTHER CHAN S JUNIOR PROGRAMMER ANALYST Ot 202.80 OTH LYMPHOMAS EXTRANODAL SOLID ORGAN U 11/13/2017 ESTHER CHAN JUNIOR PROGRAMMER ANALYST Ot V58.69 OTH MED,LT,CURRENT USE 11/13/2017 ESTHER CHAN S JUNIOR PROGRAMMER ANALYST Ot V87.41 PERSONAL HISTORY OF ANTINEOPLASTIC CHEMO 11/13/2017 ESTHER CHAN S JUNIOR PROGRAMMER ANALYST Ot 202.80 OTH LYMPHOMAS EXTRANODAL SOLID ORGAN U 11/13/2017 ESTHER CHAN S JUNIOR PROGRAMMER ANALYST Ot 202.80 OTH LYMPHOMAS EXTRANODAL SOLID ORGAN U 11/13/2017 ESTHER CHAN S JUNIOR PROGRAMMER ANALYST Ot V58.69 OTH MED,LT,CURRENT USE 11/13/2017 CHANESTHER Steele S JUNIOR PROGRAMMER ANALYST Ot 202.80 OTH LYMPHOMAS EXTRANODAL SOLID ORGAN U 11/13/2017 ESTHER CHAN S JUNIOR PROGRAMMER ANALYST Ot V58.69 OTH MED,LT,CURRENT USE 11/13/2017 CHANESTHER Stelee S JUNIOR PROGRAMMER ANALYST Ot 202.80 OTH LYMPHOMAS EXTRANODAL SOLID ORGAN U 11/13/2017 CHANESTHER Steele S JUNIOR PROGRAMMER ANALYST Ot V58.69 OTH MED,LT,CURRENT USE 11/13/2017 CHANESTHER Steele S JUNIOR PROGRAMMER ANALYST Ot 202.80 OTH LYMPHOMAS EXTRANODAL SOLID ORGAN U 11/13/2017 CHANESTHER Steele S JUNIOR PROGRAMMER ANALYST Ot V58.69 OTH MED,LT,CURRENT USE 11/13/2017 ESTHER CHAN JUNIOR PROGRAMMER ANALYST Ot 202.80 OTH LYMPHOMAS EXTRANODAL SOLID ORGAN U 11/13/2017 CHANESTHER S JUNIOR PROGRAMMER ANALYST Ot V58.69 OTH MED,LT,CURRENT USE 11/13/2017 ESTHER CHAN S JUNIOR PROGRAMMER ANALYST Ot 202.80 OTH LYMPHOMAS EXTRANODAL SOLID ORGAN U 11/13/2017 DUSTIN ESTHER S JUNIOR PROGRAMMER ANALYST Ot V58.69 OTH MED,LT,CURRENT USE 11/13/2017 CHANESTHER Steele S JUNIOR PROGRAMMER ANALYST Ot V87.41 PERSONAL HISTORY OF ANTINEOPLASTIC CHEMO 11/13/2017 CHANESTHER Steele S JUNIOR PROGRAMMER ANALYST Ot 202.80 OTH LYMPHOMAS EXTRANODAL SOLID ORGAN U 11/13/2017 CHAN ESTHER S JUNIOR PROGRAMMER ANALYST Ot V58.69 OTH MED,LT,CURRENT USE 11/13/2017 CAMILO AUGUSTIN Ot 723.0 CERVICAL SPINAL STENOSIS 11/13/2017 CAMILO AUGUSTIN Ot 722.4 CERVICAL DISC DEGEN 11/13/2017 CAMILO AUGUSTIN Ot 782.0 SKIN SENSATION DISTURB 11/13/2017 ELDER DAVIS N Ot 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, UNSP SITE, EXTRANOD 11/13/2017 RYANELDER Ot 202.80 11/13/2017 ELDER DAVIS Ot V58.11 11/14/2017 AMPARO URIBE MD Ot 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, NODES OF 11/14/2017 AMPARO URIBE MD Ot D69.6 THROMBOCYTOPENIA, UNSPECIFIED 11/14/2017 AMPARO URIBE MD Ot E03.9 HYPOTHYROIDISM, UNSPECIFIED 11/14/2017 AMPARO URIBE MD Ot M06.9 RHEUMATOID ARTHRITIS, UNSPECIFIED 11/14/2017 AMPARO URIBE MD Ot M19.91 PRIMARY OSTEOARTHRITIS, UNSPECIFIED SITE 11/14/2017 AMPARO URIBE MD Ot R04.0 EPISTAXIS 11/14/2017 AMPARO URIBE MD Ot R04.2 HEMOPTYSIS 11/14/2017 AMPARO URIBE MD Ot Z87.891 PERSONAL HISTORY OF NICOTINE DEPENDENCE 11/14/2017 AMPARO URIBE MD Ot Z92.21 PERSONAL HISTORY OF ANTINEOPLASTIC CHEMO 11/16/2017 AMPARO URIBE MD Ot 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, NODES OF 11/16/2017 AMPARO URIBE MD Ot D64.9 ANEMIA, UNSPECIFIED 11/16/2017 AMPARO URIBE MD Ot D69.3 IMMUNE THROMBOCYTOPENIC PURPURA 11/16/2017 AMPARO URIBE MD Ot E03.9 HYPOTHYROIDISM, UNSPECIFIED 11/16/2017 AMPARO URIBE MD Ot E87.1 HYPO-OSMOLALITY AND HYPONATREMIA 11/16/2017 AMPARO URIBE MD Ot K21.9 GASTRO-ESOPHAGEAL REFLUX DISEASE WITHOUT 11/16/2017 AMPARO URIBE MD Ot M06.9 RHEUMATOID ARTHRITIS, UNSPECIFIED 11/16/2017 AMPARO URIBE MD Ot M19.91 PRIMARY OSTEOARTHRITIS, UNSPECIFIED SITE 11/16/2017 AMPARO URIBE MD Ot R04.0 EPISTAXIS 11/16/2017 AMPARO URIBE MD Ot R04.2 HEMOPTYSIS 11/16/2017 AMPARO URIBE MD Ot Z87.891 PERSONAL HISTORY OF NICOTINE DEPENDENCE 11/16/2017 AMPARO URIBE MD Ot Z92.21 PERSONAL HISTORY OF ANTINEOPLASTIC CHEMO 12/20/2017 RYANELDER N Ot D69.3 IMMUNE THROMBOCYTOPENIC PURPURA 12/20/2017 RYANELDER GREENWOOD N Ot E03.9 HYPOTHYROIDISM, UNSPECIFIED 12/20/2017 RYANELDER N Ot K21.9 GASTRO-ESOPHAGEAL REFLUX DISEASE WITHOUT 12/20/2017 RYAN, ELDER N Ot M19.91 PRIMARY OSTEOARTHRITIS, UNSPECIFIED SITE 12/20/2017 RYANELDER N Ot Z79.52 SWEATBAND SHAPER (CURRENT) USE OF SYSTEMIC STER 12/20/2017 RYANELDER N Ot Z79.899 OTHER MCC (CURRENT) DRUG THERAPY 12/20/2017 RYAN, SCOTTJT N Ot 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 12/20/2017 RYANELDER GREENWOOD N Ot Z92.21 PERSONAL HISTORY OF ANTINEOPLASTIC CHEMO 01/24/2018 RYANELDER GREENWOOD N Ot D69.3 IMMUNE THROMBOCYTOPENIC PURPURA 01/24/2018 RYANELDER GREENWOOD N Ot E03.9 HYPOTHYROIDISM, UNSPECIFIED 01/24/2018 RYANELDER N Ot K21.9 GASTRO-ESOPHAGEAL REFLUX DISEASE WITHOUT 01/24/2018 RYAN, BOBAN N Ot M19.91 PRIMARY OSTEOARTHRITIS, UNSPECIFIED SITE 01/24/2018 RYAN BOBJT N Ot Z79.52 MCC (CURRENT) USE OF SYSTEMIC STER 01/24/2018 RYANELDER N Ot Z79.899 OTHER MCC (CURRENT) DRUG THERAPY 01/24/2018 RYANELDER N Ot 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 01/24/2018 RYANELDER N Ot Z92.21 PERSONAL HISTORY OF ANTINEOPLASTIC CHEMO 02/26/2018 RYANELDER N Ot D69.3 IMMUNE THROMBOCYTOPENIC PURPURA 02/26/2018 RYANELDER N Ot E03.9 HYPOTHYROIDISM, UNSPECIFIED 02/26/2018 RYAN BOBAN N Ot K21.9 GASTRO-ESOPHAGEAL REFLUX DISEASE WITHOUT 02/26/2018 RYAN, BOBAN N Ot M19.91 PRIMARY OSTEOARTHRITIS, UNSPECIFIED SITE 02/26/2018 RYAN SCOTTJT N Ot Z79.52 MCC (CURRENT) USE OF SYSTEMIC STER 02/26/2018 RYAN, BOBAN N Ot Z79.899 OTHER SWEATBAND SHAPER (CURRENT) DRUG THERAPY 02/26/2018 ELDER DAVIS N Ot 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 02/26/2018 ELDER DAVIS N Ot Z92.21 PERSONAL HISTORY OF ANTINEOPLASTIC CHEMO 02/27/2018 ELDER DAVIS N Ot D69.3 IMMUNE THROMBOCYTOPENIC PURPURA 02/27/2018 ELDER DAVIS N Ot E03.9 HYPOTHYROIDISM, UNSPECIFIED 02/27/2018 ELDER DAVIS N Ot K21.9 GASTRO-ESOPHAGEAL REFLUX DISEASE WITHOUT 02/27/2018 RYANELDER N Ot M19.91 PRIMARY OSTEOARTHRITIS, UNSPECIFIED SITE 02/27/2018 ELDER DAVIS N Ot Z79.52 MCC (CURRENT) USE OF SYSTEMIC STER 02/27/2018 ELDER DAVIS N Ot Z79.899 OTHER MCC (CURRENT) DRUG THERAPY 02/27/2018 ELDER DAVIS N Ot 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 02/27/2018 ELDER DAVIS N Ot Z92.21 PERSONAL HISTORY OF ANTINEOPLASTIC CHEMO 04/11/2018 ELDER DAVIS N Ot D69.3 IMMUNE THROMBOCYTOPENIC PURPURA 04/11/2018 ELDER DAVIS N Ot E03.9 HYPOTHYROIDISM, UNSPECIFIED 04/11/2018 ELDER DAVIS N Ot K21.9 GASTRO-ESOPHAGEAL REFLUX DISEASE WITHOUT 04/11/2018 ELDER DAVIS N Ot M19.91 PRIMARY OSTEOARTHRITIS, UNSPECIFIED SITE 04/11/2018 ELDER DAVIS N Ot Z79.52 SWEATBAND SHAPER (CURRENT) USE OF SYSTEMIC STER 04/11/2018 ELDER DAVIS N Ot Z79.899 OTHER SWE[employer] SHAPER (CURRENT) DRUG THERAPY 04/11/2018 ELDER DAVIS N Ot 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 04/11/2018 ELDER DAVIS N Ot Z92.21 PERSONAL HISTORY OF ANTINEOPLASTIC CHEMO 04/11/2018 Ot 780.79 OTH MALAISE FATIGUE 04/11/2018 Ot 785.6 ENLARGEMENT LYMPH NODES 04/11/2018 Ot V72.63 PRE- PROCEDURAL LABORATORY EXAMINATION 04/11/2018 Ot V72.81 EXAM-PRE- OPERATIVE CARDIOVASCULAR 04/11/2018 Ot V72.83 EXAM PRE- OPERATIVE NEC 04/11/2018 Ot V74.8 SCREEN- BACTERIAL DIS NEC 04/11/2018 Ot 202.80 OTH LYMPHOMAS EXTRANODAL SOLID ORGAN U 04/11/2018 ELDER DAVIS Ot 202.80 OTH LYMPHOMAS EXTRANODAL SOLID ORGAN U 04/11/2018 ELDER DAVIS Ot 397.0 TRICUSPID VALVE DISEASE 04/11/2018 ELDER DAVIS Ot 424.0 MITRAL VALVE DISORDER 04/11/2018 ELDER DAVIS Ot V58.69 OTH MED,LT,CURRENT USE 04/11/2018 ELDER DAVIS Ot V58.83 ENCOUNTER FOR THERAPEUTIC DRUG MONITORIN 04/11/2018 ELDER DAVIS Ot V87.41 PERSONAL HISTORY OF ANTINEOPLASTIC CHEMO 04/11/2018 ESTHER CHAN JUNIOR PROGRAMMER ANALYST Ot 202.80 OTH LYMPHOMAS EXTRANODAL SOLID ORGAN U 04/11/2018 ESTHER CHAN JUNIOR PROGRAMMER ANALYST Ot V58.69 OTH MED,LT,CURRENT USE 04/11/2018 ESTHER CHAN JUNIOR PROGRAMMER ANALYST Ot V87.41 PERSONAL HISTORY OF ANTINEOPLASTIC CHEMO 04/11/2018 ESTHER CHAN JUNIOR PROGRAMMER ANALYST Ot 202.80 OTH LYMPHOMAS EXTRANODAL SOLID ORGAN U 04/11/2018 ESTHER CHAN JUNIOR PROGRAMMER ANALYST Ot V58.69 OTH MED,LT,CURRENT USE 04/11/2018 ESTHER CHAN JUNIOR PROGRAMMER ANALYST Ot V87.41 PERSONAL HISTORY OF ANTINEOPLASTIC CHEMO 04/11/2018 ESTHER CHAN JUNIOR PROGRAMMER ANALYST Ot 202.80 OTH LYMPHOMAS EXTRANODAL SOLID ORGAN U 04/11/2018 ESTHER CHAN JUNIOR PROGRAMMER ANALYST Ot 202.80 OTH LYMPHOMAS EXTRANODAL SOLID ORGAN U 04/11/2018 ESTHER CHAN JUNIOR PROGRAMMER ANALYST Ot V58.69 OTH MED,LT,CURRENT USE 04/11/2018 ESTHER CHAN JUNIOR PROGRAMMER ANALYST Ot 202.80 OTH LYMPHOMAS EXTRANODAL SOLID ORGAN U 04/11/2018 ESTHER CHAN JUNIOR PROGRAMMER ANALYST Ot V58.69 OTH MED,LT,CURRENT USE 04/11/2018 ESTHER CHAN JUNIOR PROGRAMMER ANALYST Ot 202.80 OTH LYMPHOMAS EXTRANODAL SOLID ORGAN U 04/11/2018 ESTHER CHAN JUNIOR PROGRAMMER ANALYST Ot V58.69 OTH MED,LT,CURRENT USE 04/11/2018 ESTHER CHAN JUNIOR PROGRAMMER ANALYST Ot 202.80 OTH LYMPHOMAS EXTRANODAL SOLID ORGAN U 04/11/2018 CHANESTHER Steele JUNIOR PROGRAMMER ANALYST Ot V58.69 OTH MED,LT,CURRENT USE 04/11/2018 CHANESTHER Steele JUNIOR PROGRAMMER ANALYST Ot 202.80 OTH LYMPHOMAS EXTRANODAL SOLID ORGAN U 04/11/2018 CHANESTHER Steele JUNIOR PROGRAMMER ANALYST Ot V58.69 OTH MED,LT,CURRENT USE 04/11/2018 CHANESTHER Steele JUNIOR PROGRAMMER ANALYST Ot 202.80 OTH LYMPHOMAS EXTRANODAL SOLID ORGAN U 04/11/2018 CHANESTHER S JUNIOR PROGRAMMER ANALYST Ot V58.69 OTH MED,LT,CURRENT USE 04/11/2018 CHANESTHER Steele S JUNIOR PROGRAMMER ANALYST Ot V87.41 PERSONAL HISTORY OF ANTINEOPLASTIC CHEMO 04/11/2018 ESTHER CHAN JUNIOR PROGRAMMER ANALYST Ot 202.80 OTH LYMPHOMAS EXTRANODAL SOLID ORGAN U 04/11/2018 CHANESTHER Steele S JUNIOR PROGRAMMER ANALYST Ot V58.69 OTH MED,LT,CURRENT USE 04/11/2018 CAMILO AUGUSTIN Ot 723.0 CERVICAL SPINAL STENOSIS 04/11/2018 CAMILO AUGUSTIN K Ot 722.4 CERVICAL DISC DEGEN 04/11/2018 CAMILO AUGUSTIN Ot 782.0 SKIN SENSATION DISTURB 04/11/2018 ELDER DAVIS Ot 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, UNSP SITE, EXTRANOD 04/11/2018 ELDER DAVIS Ot D69.3 IMMUNE THROMBOCYTOPENIC PURPURA 04/11/2018 ELDER DAVIS Ot E03.9 HYPOTHYROIDISM, UNSPECIFIED 04/11/2018 ELDER DAVIS Ot K21.9 GASTRO-ESOPHAGEAL REFLUX DISEASE WITHOUT 04/11/2018 ELDER DAVIS Ot M19.91 PRIMARY OSTEOARTHRITIS, UNSPECIFIED SITE 04/11/2018 ELDER DAVIS Ot Z79.52 SWE[employer] SHAPER (CURRENT) USE OF SYSTEMIC STER 04/11/2018 ELDER DAVIS Ot Z79.899 OTHER SWE[employer] SHAPER (CURRENT) DRUG THERAPY 04/11/2018 ELDER DAVIS Ot 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 04/11/2018 ELDER DAVIS Ot Z92.21 PERSONAL HISTORY OF ANTINEOPLASTIC CHEMO 04/12/2018 RYANELDER N Ot D69.3 IMMUNE THROMBOCYTOPENIC PURPURA 04/12/2018 ELDER DAVIS N Ot E03.9 HYPOTHYROIDISM, UNSPECIFIED 04/12/2018 RYANELDER N Ot K21.9 GASTRO-ESOPHAGEAL REFLUX DISEASE WITHOUT 04/12/2018 RYANELDER N Ot M19.91 PRIMARY OSTEOARTHRITIS, UNSPECIFIED SITE 04/12/2018 ELDER DAVIS N Ot Z79.52 MCC (CURRENT) USE OF SYSTEMIC STER 04/12/2018 RYAN BOBAN N Ot Z79.899 OTHER MCC (CURRENT) DRUG THERAPY 04/12/2018 RYAN, BOBAN N Ot 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 04/12/2018 RYANSCOTTJT N Ot Z92.21 PERSONAL HISTORY OF ANTINEOPLASTIC CHEMO 05/22/2018 ELDER DAVIS N Ot D69.3 IMMUNE THROMBOCYTOPENIC PURPURA 05/22/2018 ELDER DAVIS N Ot E03.9 HYPOTHYROIDISM, UNSPECIFIED 05/22/2018 RYAN BOBAN N Ot K21.9 GASTRO-ESOPHAGEAL REFLUX DISEASE WITHOUT 05/22/2018 RYANSCOTTAN N Ot M19.91 PRIMARY OSTEOARTHRITIS, UNSPECIFIED SITE 05/22/2018 RYAN BOBAN N Ot Z79.52 MCC (CURRENT) USE OF SYSTEMIC STER 05/22/2018 RYAN BOBAN N Ot Z79.899 OTHER SWE[employer] SHAPER (CURRENT) DRUG THERAPY 05/22/2018 RYAN, BOBAN N Ot 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 05/22/2018 RYAN BOBJT N Ot Z92.21 PERSONAL HISTORY OF ANTINEOPLASTIC CHEMO 05/29/2018 RYANELDER N Ot D69.3 IMMUNE THROMBOCYTOPENIC PURPURA 05/29/2018 RYANSCOTTAN N Ot E03.9 HYPOTHYROIDISM, UNSPECIFIED 05/29/2018 RYAN, BOBAN N Ot K21.9 GASTRO-ESOPHAGEAL REFLUX DISEASE WITHOUT 05/29/2018 RYAN, BOBAN N Ot M19.91 PRIMARY OSTEOARTHRITIS, UNSPECIFIED SITE 05/29/2018 RYANSCOTTAN N Ot Z79.52 MCC (CURRENT) USE OF SYSTEMIC STER 05/29/2018 RYAN, BOBAN N Ot Z79.899 OTHER SWE[employer] SHAPER (CURRENT) DRUG THERAPY 05/29/2018 ELDER DAVIS Ruben Ot 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 05/29/2018 ELDER DAVIS Ot Z92.21 PERSONAL HISTORY OF ANTINEOPLASTIC CHEMO 07/01/2018 NORIS LOZOYA MD Ot D69.3 IMMUNE THROMBOCYTOPENIC PURPURA 07/01/2018 NORIS LOZOYA MD Ot D72.821 MONOCYTOSIS (SYMPTOMATIC) 07/01/2018 NORIS LOZOYA MD Ot E03.9 HYPOTHYROIDISM, UNSPECIFIED 07/01/2018 NORIS LOZOYA MD Ot K21.9 GASTRO-ESOPHAGEAL REFLUX DISEASE WITHOUT 07/01/2018 NORIS LOZOYA MD Ot 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 07/04/2018 NORIS LOZOYA MD Ot D69.3 IMMUNE THROMBOCYTOPENIC PURPURA 07/04/2018 NORIS LOZOYA MD Ot D72.821 MONOCYTOSIS (SYMPTOMATIC) 07/04/2018 NORIS LOZOYA MD Ot E03.9 HYPOTHYROIDISM, UNSPECIFIED 07/04/2018 NORIS LOZOYA MD Ot K21.9 GASTRO-ESOPHAGEAL REFLUX DISEASE WITHOUT 07/04/2018 NORIS LOZOYA MD Ot 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 07/06/2018 NORIS LOZOYA MD Ot D69.3 IMMUNE THROMBOCYTOPENIC PURPURA 07/06/2018 NORIS LOZOYA MD Ot D72.821 MONOCYTOSIS (SYMPTOMATIC) 07/06/2018 NORIS LOZOYA MD Ot E03.9 HYPOTHYROIDISM, UNSPECIFIED 07/06/2018 NORIS LOZOYA MD Ot K21.9 GASTRO-ESOPHAGEAL REFLUX DISEASE WITHOUT 07/06/2018 NORIS LOZOYA MD Ot 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 07/06/2018 MINOR SCHWARTZ MD Ot Z01.818 ENCOUNTER FOR OTHER PREPROCEDURAL EXAMIN 07/09/2018 MINOR SCHWARTZ MD Ot Z01.818 ENCOUNTER FOR OTHER PREPROCEDURAL EXAMIN Procedures Code Description Performed By Performed On [id number] DRAINAGE OF BONE MARROW, PERCUTANEOUS AP 11/14/2017 [id number] EXTRACTION OF ILIAC BONE MARROW, PERC AP 11/14/2017 Results Test Result Range Complete blood count (CBC) with automated white blood cell (WBC) differential - 11/13/17 14:35 Blood leukocytes automated count (number/volume) 7.7 10*3/uL 4.3-11.0 Blood erythrocytes automated count (number/volume) 3.15 10*6/uL 4.35-5.85 Venous blood hemoglobin measurement (mass/volume) 10.3 g/dL 11.5-16.0 Blood hematocrit (volume fraction) 30 % 35-52 Automated erythrocyte mean corpuscular volume 96 [foz_us] 80-99 Automated erythrocyte mean corpuscular hemoglobin (mass per erythrocyte) 33 pg 25-34 Automated erythrocyte mean corpuscular hemoglobin concentration measurement ( mass/volume) 34 g/dL 32-36 Automated erythrocyte distribution width ratio 13.2 % 10.0-14.5 Automated blood platelet count (count/volume) 6 10*3/uL 130-400 Automated blood platelet mean volume measurement 10.9 [foz_us] 7.4-10.4 Automated blood neutrophils/100 leukocytes 47 % 42-75 Automated blood lymphocytes/100 leukocytes 28 % 12-44 Blood monocytes/100 leukocytes 21 % 0-12 Automated blood eosinophils/100 leukocytes 3 % 0-10 Automated blood basophils/100 leukocytes 1 % 0-10 Blood neutrophils automated count (number/volume) 3.6 10*3 1.8-7.8 Blood lymphocytes automated count (number/volume) 2.2 10*3 1.0-4.0 Blood monocytes automated count (number/volume) 1.6 10*3 0.0-1.0 Automated eosinophil count 0.2 10*3/uL 0.0-0.3 Automated blood basophil count (count/volume) 0.1 10*3/uL 0.0-0.1 PLATELET PHERESIS LR - 11/13/17 14:35 PLATELET PHERESIS LR TRANSFUSED 11/15/17 1451 NRG ABO+Rh group - 11/13/17 14:35 ABO+Rh group OP NRG Transfusion band number [id number] NRG Blood manual differential performed detection - 11/13/17 14:35 Blood monocytes/100 leukocytes 19 % NRG Manual blood segmented neutrophils/100 leukocytes 48 % NRG Blood band neutrophils/100 leukocytes 2 % NRG Manual blood lymphocytes/100 leukocytes 25 % NRG Manual eosinophils/100 leukocytes in nose 4 % NRG Manual blood basophils/100 leukocytes 1 % NRG Blood erythrocyte morphology finding identification NORMAL NRG Manual blood metamyelocytes/100 leukocytes 1 % NRG Complete blood count (CBC) with automated white blood cell (WBC) differential - 11/13/17 19:25 Blood leukocytes automated count (number/volume) 9.4 10*3/uL 4.3-11.0 Blood erythrocytes automated count (number/volume) 3.05 10*6/uL 4.35-5.85 Venous blood hemoglobin measurement (mass/volume) 10.0 g/dL 11.5-16.0 Blood hematocrit (volume fraction) 29 % 35-52 Automated erythrocyte mean corpuscular volume 95 [foz_us] 80-99 Automated erythrocyte mean corpuscular hemoglobin (mass per erythrocyte) 33 pg 25-34 Automated erythrocyte mean corpuscular hemoglobin concentration measurement ( mass/volume) 35 g/dL 32-36 Automated erythrocyte distribution width ratio 13.0 % 10.0-14.5 Automated blood platelet count (count/volume) 37 10*3/uL 130-400 Automated blood platelet mean volume measurement 9.4 [foz_us] 7.4-10.4 Automated blood neutrophils/100 leukocytes 50 % 42-75 Automated blood lymphocytes/100 leukocytes 25 % 12-44 Blood monocytes/100 leukocytes 22 % 0-12 Automated blood eosinophils/100 leukocytes 3 % 0-10 Automated blood basophils/100 leukocytes 1 % 0-10 Blood neutrophils automated count (number/volume) 4.7 10*3 1.8-7.8 Blood lymphocytes automated count (number/volume) 2.3 10*3 1.0-4.0 Blood monocytes automated count (number/volume) 2.0 10*3 0.0-1.0 Automated eosinophil count 0.2 10*3/uL 0.0-0.3 Automated blood basophil count (count/volume) 0.1 10*3/uL 0.0-0.1 Complete blood count (CBC) with automated white blood cell (WBC) differential - 11/14/17 05:38 Blood leukocytes automated count (number/volume) 7.5 10*3/uL 4.3-11.0 Blood erythrocytes automated count (number/volume) 2.88 10*6/uL 4.35-5.85 Venous blood hemoglobin measurement (mass/volume) 9.4 g/dL 11.5-16.0 Blood hematocrit (volume fraction) 27 % 35-52 Automated erythrocyte mean corpuscular volume 95 [foz_us] 80-99 Automated erythrocyte mean corpuscular hemoglobin (mass per erythrocyte) 33 pg 25-34 Automated erythrocyte mean corpuscular hemoglobin concentration measurement ( mass/volume) 34 g/dL 32-36 Automated erythrocyte distribution width ratio 13.3 % 10.0-14.5 Automated blood platelet count (count/volume) 15 10*3/uL 130-400 Automated blood platelet mean volume measurement 13.2 [foz_us] 7.4-10.4 Automated blood neutrophils/100 leukocytes 42 % 42-75 Automated blood lymphocytes/100 leukocytes 28 % 12-44 Blood monocytes/100 leukocytes 26 % 0-12 Automated blood eosinophils/100 leukocytes 3 % 0-10 Automated blood basophils/100 leukocytes 1 % 0-10 Blood neutrophils automated count (number/volume) 3.1 10*3 1.8-7.8 Blood lymphocytes automated count (number/volume) 2.1 10*3 1.0-4.0 Blood monocytes automated count (number/volume) 1.9 10*3 0.0-1.0 Automated eosinophil count 0.3 10*3/uL 0.0-0.3 Automated blood basophil count (count/volume) 0.1 10*3/uL 0.0-0.1 Comprehensive metabolic panel - 11/14/17 05:38 Serum or plasma sodium measurement (moles/volume) 139 mmol/L 135-145 Serum or plasma potassium measurement (moles/volume) 4.0 mmol/L 3.6-5.0 Serum or plasma chloride measurement (moles/volume) 103 mmol/L 98-107 Carbon dioxide 24 mmol/L 21-32 Serum or plasma anion gap determination (moles/volume) 12 mmol/L 5-14 Serum or plasma urea nitrogen measurement (mass/volume) 15 mg/dL 7-18 Serum or plasma creatinine measurement (mass/volume) 0.82 mg/dL 0.60-1.30 Serum or plasma urea nitrogen/creatinine mass ratio 18 NRG Serum or plasma creatinine measurement with calculation of estimated glomerular filtration rate > NRG Serum or plasma glucose measurement (mass/volume) 89 mg/dL 70-105 Serum or plasma calcium measurement (mass/volume) 9.1 mg/dL 8.5-10.1 Serum or plasma total bilirubin measurement (mass/volume) 1.2 mg/dL 0.1-1.0 Serum or plasma alkaline phosphatase measurement (enzymatic activity/volume) 92 U/L 40-136 Serum or plasma aspartate aminotransferase measurement (enzymatic activity/ volume) 29 U/L 5-34 Serum or plasma alanine aminotransferase measurement (enzymatic activity/volume ) 21 U/L 0-55 Serum or plasma protein measurement (mass/volume) 7.1 g/dL 6.4-8.2 Serum or plasma albumin measurement (mass/volume) 4.0 g/dL 3.2-4.5 Lactate dehydrogenase 1 [enzymatic activity/volume] in serum or plasma - 05:38 Lactate dehydrogenase 1 [enzymatic activity/volume] in serum or plasma 260 U/L 125-220 Blood manual differential performed detection - 11/14/17 05:38 Blood monocytes/100 leukocytes 17 % NRG Manual blood segmented neutrophils/100 leukocytes 51 % NRG Manual blood lymphocytes/100 leukocytes 30 % NRG Manual eosinophils/100 leukocytes in nose 2 % NRG Blood polychromasia detection by light microscopy SLIGHT NRG Automated reticulocyte percentage - 11/14/17 05:38 Blood reticulocytes count (number/volume) 138 10*9/L 24- 90 Blood reticulocytes/100 erythrocytes 4.81 % 0.50-2.40 * Reference lab test name - 11/14/17 14:54 * Reference lab test results KAROTYPE AN BM NRG Automated blood complete blood count (hemogram) panel - 11/14/17 17:48 Blood leukocytes automated count (number/volume) 8.3 10*3/uL 4.3-11.0 Blood erythrocytes automated count (number/volume) 3.04 10*6/uL 4.35-5.85 Venous blood hemoglobin measurement (mass/volume) 9.9 g/dL 11.5-16.0 Blood hematocrit (volume fraction) 29 % 35-52 Automated erythrocyte mean corpuscular volume 95 [foz_us] 80-99 Automated erythrocyte mean corpuscular hemoglobin (mass per erythrocyte) 33 pg 25-34 Automated erythrocyte mean corpuscular hemoglobin concentration measurement ( mass/volume) 34 g/dL 32-36 Automated erythrocyte distribution width ratio 13.2 % 10.0-14.5 Automated blood platelet count (count/volume) 12 10*3/uL 130-400 Automated blood platelet mean volume measurement TNP 7.4 -10.4 Comprehensive metabolic panel - 11/15/17 05:19 Serum or plasma sodium measurement (moles/volume) 132 mmol/L 135-145 Serum or plasma potassium measurement (moles/volume) 4.0 mmol/L 3.6-5.0 Serum or plasma chloride measurement (moles/volume) 99 mmol/L 98-107 Carbon dioxide 25 mmol/L 21-32 Serum or plasma anion gap determination (moles/volume) 8 mmol/L 5-14 Serum or plasma urea nitrogen measurement (mass/volume) 13 mg/dL 7-18 Serum or plasma creatinine measurement (mass/volume) 0.82 mg/dL 0.60-1.30 Serum or plasma urea nitrogen/creatinine mass ratio 16 NRG Serum or plasma creatinine measurement with calculation of estimated glomerular filtration rate > NRG Serum or plasma glucose measurement (mass/volume) 92 mg/dL 70-105 Serum or plasma calcium measurement (mass/volume) 9.3 mg/dL 8.5-10.1 Serum or plasma total bilirubin measurement (mass/volume) 1.1 mg/dL 0.1-1.0 Serum or plasma alkaline phosphatase measurement (enzymatic activity/volume) 88 U/L 40-136 Serum or plasma aspartate aminotransferase measurement (enzymatic activity/ volume) 26 U/L 5-34 Serum or plasma alanine aminotransferase measurement (enzymatic activity/volume ) 21 U/L 0-55 Serum or plasma protein measurement (mass/volume) 7.0 g/dL 6.4-8.2 Serum or plasma albumin measurement (mass/volume) 4.0 g/dL 3.2-4.5 Lactate dehydrogenase 1 [enzymatic activity/volume] in serum or plasma - 05:19 Lactate dehydrogenase 1 [enzymatic activity/volume] in serum or plasma 229 U/L 125-220 Complete blood count (CBC) with automated white blood cell (WBC) differential - 11/15/17 05:19 Blood leukocytes automated count (number/volume) 7.5 10*3/uL 4.3-11.0 Blood erythrocytes automated count (number/volume) 2.99 10*6/uL 4.35-5.85 Venous blood hemoglobin measurement (mass/volume) 9.7 g/dL 11.5-16.0 Blood hematocrit (volume fraction) 28 % 35-52 Automated erythrocyte mean corpuscular volume 94 [foz_us] 80-99 Automated erythrocyte mean corpuscular hemoglobin (mass per erythrocyte) 32 pg 25-34 Automated erythrocyte mean corpuscular hemoglobin concentration measurement ( mass/volume) 35 g/dL 32-36 Automated erythrocyte distribution width ratio 13.3 % 10.0-14.5 Automated blood platelet count (count/volume) 9 10*3/uL 130-400 Automated blood platelet mean volume measurement 12.6 [fo_us] 7.4-10.4 Automated blood neutrophils/100 leukocytes 46 % 42-75 Automated blood lymphocytes/100 leukocytes 26 % 12-44 Blood monocytes/100 leukocytes 25 % 0-12 Automated blood eosinophils/100 leukocytes 3 % 0-10 Automated blood basophils/100 leukocytes 1 % 0-10 Blood neutrophils automated count (number/volume) 3.4 10*3 1.8-7.8 Blood lymphocytes automated count (number/volume) 1.9 10*3 1.0-4.0 Blood monocytes automated count (number/volume) 1.8 10*3 0.0-1.0 Automated eosinophil count 0.2 10*3/uL 0.0-0.3 Automated blood basophil count (count/volume) 0.1 10*3/uL 0.0-0.1 Complete blood count (CBC) with automated white blood cell (WBC) differential - 11/16/17 05:35 Blood leukocytes automated count (number/volume) 8.6 10*3/uL 4.3-11.0 Blood erythrocytes automated count (number/volume) 2.93 10*6/uL 4.35-5.85 Venous blood hemoglobin measurement (mass/volume) 9.6 g/dL 11.5-16.0 Blood hematocrit (volume fraction) 27 % 35-52 Automated erythrocyte mean corpuscular volume 93 [fo_us] 80-99 Automated erythrocyte mean corpuscular hemoglobin (mass per erythrocyte) 33 pg 25-34 Automated erythrocyte mean corpuscular hemoglobin concentration measurement ( mass/volume) 35 g/dL 32-36 Automated erythrocyte distribution width ratio 13.6 % 10.0-14.5 Automated blood platelet count (count/volume) 50 10*3/uL 130-400 Automated blood platelet mean volume measurement 12.8 [foz_us] 7.4-10.4 Automated blood neutrophils/100 leukocytes 70 % 42-75 Automated blood lymphocytes/100 leukocytes 19 % 12-44 Blood monocytes/100 leukocytes 10 % 0-12 Automated blood eosinophils/100 leukocytes 1 % 0-10 Automated blood basophils/100 leukocytes 0 % 0-10 Blood neutrophils automated count (number/volume) 6.0 10*3 1.8-7.8 Blood lymphocytes automated count (number/volume) 1.6 10*3 1.0-4.0 Blood monocytes automated count (number/volume) 0.9 10*3 0.0-1.0 Automated eosinophil count 0.1 10*3/uL 0.0-0.3 Automated blood basophil count (count/volume) 0.0 10*3/uL 0.0-0.1 Comprehensive metabolic panel - 11/16/17 05:35 Serum or plasma sodium measurement (moles/volume) 133 mmol/L 135-145 Serum or plasma potassium measurement (moles/volume) 4.7 mmol/L 3.6-5.0 Serum or plasma chloride measurement (moles/volume) 98 mmol/L 98-107 Carbon dioxide 21 mmol/L 21-32 Serum or plasma anion gap determination (moles/volume) 14 mmol/L 5-14 Serum or plasma urea nitrogen measurement (mass/volume) 14 mg/dL 7-18 Serum or plasma creatinine measurement (mass/volume) 0.79 mg/dL 0.60-1.30 Serum or plasma urea nitrogen/creatinine mass ratio 18 NRG Serum or plasma creatinine measurement with calculation of estimated glomerular filtration rate > NRG Serum or plasma glucose measurement (mass/volume) 135 mg/dL 70-105 Serum or plasma calcium measurement (mass/volume) 9.2 mg/dL 8.5-10.1 Serum or plasma total bilirubin measurement (mass/volume) 0.6 mg/dL 0.1-1.0 Serum or plasma alkaline phosphatase measurement (enzymatic activity/volume) 85 U/L 40-136 Serum or plasma aspartate aminotransferase measurement (enzymatic activity/ volume) 33 U/L 5-34 Serum or plasma alanine aminotransferase measurement (enzymatic activity/volume ) 20 U/L 0-55 Serum or plasma protein measurement (mass/volume) 7.4 g/dL 6.4-8.2 Serum or plasma albumin measurement (mass/volume) 4.1 g/dL 3.2-4.5 Encounters ACCT No. Visit Date/Time Discharge Status Pt. 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 [id number] 04/11/2018 09:04:00 05/29/2018 14:06:00 DIS Outpatient ELDER DAVIS [facility] ONC [id number] 02/21/2018 08:38:00 02/26/2018 00:01:00 DIS Outpatient ELDER DAVIS [facility] ONC [id number] 11/13/2017 11:25:00 11/16/2017 13:30:00 DIS Inpatient AMPARO URIBE MD [facility] 4TH EPITAXIS THROMBOCYTOPENIA [id number] 05/04/2015 09:01:00 06/21/2015 00:01:00 DIS Outpatient ELDER DAVIS [facility] ONC [id number] 05/04/2015 08:49:00 05/04/2015 23:59:59 CLS Outpatient ELDER DAVIS [facility] RAD LYMPHOMA [id number] 03/17/2015 07:30:00 03/17/2015 23:59:59 CLS Outpatient CAMILO AUGUSTIN [facility] RAD DDD [id number] 03/09/2015 07:50:00 03/09/2015 23:59:59 CLS Outpatient CAMILO AUGUSTIN [facility] RAD DDD,NECK PAIN [id number] 01/26/2015 12:54:00 02/22/2015 00:01:00 DIS Outpatient ELDER DAVIS [facility] ONC [id number] 01/26/2015 12:53:00 01/26/2015 23:59:59 CLS Outpatient ESTHER CHAN S J[employer]IOR PROGRAMMER ANALYST [facility] ONC [id number] 09/29/2014 13:13:00 11/02/2014 00:01:00 DIS Outpatient ELDER DAVIS Ruben [facility] ONC [id number] 09/29/2014 13:12:00 09/29/2014 23:59:59 CLS Outpatient ESTHER CHAN S JUNIOR PROGRAMMER ANALYST [facility] ONC [id number] 06/10/2014 08:39:00 07/13/2014 00:01:00 DIS Outpatient ELDER DAVIS Ruben [facility] ONC [id number] 06/10/2014 08:40:00 06/10/2014 23:59:59 CLS Outpatient ESTHER CHAN S JUNIOR PROGRAMMER ANALYST [facility] ONC [id number] 02/17/2014 08:45:00 03/26/2014 00:01:00 DIS Outpatient RYAN SCOTTJT Ruben [facility] ONC [id number] 02/17/2014 08:43:00 02/17/2014 23:59:59 CLS Outpatient ESTHER CHAN S JUNIOR PROGRAMMER ANALYST [facility] ONC [id number] 10/30/2013 08:32:00 12/03/2013 00:01:00 DIS Outpatient ELDER DAVIS Ruben [facility] ONC [id number] 10/30/2013 08:28:00 10/30/2013 23:59:59 CLS Outpatient ESTHER CHAN S JUNIOR PROGRAMMER ANALYST [facility] ONC [id number] 07/10/2013 09:43:00 08/13/2013 00:01:00 DIS Outpatient ELDER DAVIS [facility] ONC [id number] 07/10/2013 09:25:00 07/10/2013 23:59:59 CLS Outpatient ESTHER CHAN S JUNIOR PROGRAMMER ANALYST [facility] ONC [id number] 06/12/2013 09:53:00 06/12/2013 23:59:59 CLS Outpatient CHAN, HILAH S JUNIOR PROGRAMMER ANALYST [facility] ONC [id number] 05/07/2013 10:12:00 05/07/2013 23:59:59 CLS Outpatient ESTHER CHAN JUNIOR PROGRAMMER ANALYST [facility] RAD NHL [id number] 03/21/2013 11:57:00 04/23/2013 00:01:00 DIS Outpatient ELDER DAVIS [facility] ONC [id number] 04/17/2013 10:09:00 04/17/2013 23:59:59 CLS Outpatient ESTHER CHAN JUNIOR PROGRAMMER ANALYST [facility] ONC [id number] 02/19/2013 09:22:00 02/19/2013 23:59:59 CLS Outpatient ESTHER CHAN JUNIOR PROGRAMMER ANALYST [facility] ONC [id number] 01/25/2013 10:34:00 01/25/2013 23:59:59 CLS Outpatient ELDER DAVIS [facility] CARD PREVIOUS CHEMO, NON [place]GKIN LYMPHOMA [id number] 07/11/2018 10:15:00 PEN PreadMINOR Watkins MD [facility] ENDO SCREENING/REFLUX [id number] 01/17/2013 10:17:00 Document Registration [id number] 01/03/2013 06:40:00 Document Registration [id number] 12/31/2012 08:28:00 Document Registration [email or web address] 05/04/2015 09:02:20 ACT Document Registration
[2018-07-11 10:00] VITALS: BP 134/81
[2018-07-11] MEDS ORDERED: NS IV 500 ML 500 ML ONE (10:05)
[2018-07-11] MEDS ORDERED: MIDAZOLAM 2 MG/2 ML (VERSED) VIAL ONE ×3 (10:19)
[2018-07-11] MEDS ORDERED: LIDOCAINE JELLY 2% 6 ML SYRINGE ONE (10:20)
[2018-07-11] MEDS ORDERED: fentaNYL INJECTION 100 MCG/2 ML AMP ONE (10:20)
[2018-07-11] MEDS ORDERED: HURRICAINE EXT TUBE (BENZOCAINE) ONE (10:20)
[2018-07-11] MEDS ORDERED: NS IV 500 ML 500 ML IV PRN (10:23)
[2018-07-11] MEDS ORDERED: MIDAZOLAM 2 MG/2 ML (VERSED) VIAL IVP ONE (10:30)
[2018-07-11] MEDS ORDERED: fentaNYL INJECTION 100 MCG/2 ML AMP IVP ONE (10:30)
[2018-07-11] MEDS ORDERED: LIDOCAINE JELLY 2% 6 ML SYRINGE MM PRN (10:30)
[2018-07-11] MEDS ORDERED: HURRICAINE EXT TUBE (BENZOCAINE) XX ONE (10:45)
--- NOTE | 2018-07-11 11:17 | Conscious Sedation/ASA ---
Conscious Sedation Pre-Proced Time 11:00 ASA Score 2 For ASA 3 and 4: Consider anesthesia and medical clearance. Also, for patients with a history of failed moderate sedation consider anesthesia. Airway Lungs Heart ASA score ASA 1: a normal healthy patient ASA 2: a patient with a mild systemic disease (mid diabetes, controlled hypertension, obesity ASA 3: a patient with a severe systemic disease that limits activity (angina , COPD, prior Myocardial infarction) ASA 4: a patient with an incapacitating disease that is a constant threat to life (CHF, renal failure) ASA 5: a moribund patient not expected to survive 24 hrs. (ruptured aneurysm) ASA 6: a declared brain patient whose organs are being harvested. For emergent operations, add the letter E after the classification Mallampati Classification Grade 2 Sedation Plan Analgesia, Amnesia, Plan communicated to team members, Discussed options with patient/fam, Discussed risks with patient/fam The patient is an appropriate candidate to undergo the planned procedure, sedation, and anesthesia. The patient immediately re-assessed prior to indication. MINOR SCHWARTZ MD Jul 11, 2018 11:17 am
--- NOTE | 2018-07-11 11:18 | Progress Note-Pre Operative ---
Pre-Operative Progress Note H&P Reviewed The H&P was reviewed, patient examined and no changes noted. Date Seen by Provider: Jul 11, 2018 Time Seen by Provider: 11:00 Date H&P Reviewed: Jul 11, 2018 Time H&P Reviewed: 11:00 Pre-Operative Diagnosis: dysphagia, screening colonoscopy MINOR SCHWARTZ MD Jul 11, 2018 11:18 am
[2018-07-11] MEDS ORDERED: ONDANSETRON 4 MG/2 ML (SDV) Z0FRAN IV PRN (11:30)
[2018-07-11] MEDS ORDERED: HYDROcodone/APAP 5 MG/325 MG (LORTAB) TAB PO PRN (11:30)
[2018-07-11] MEDS ORDERED: ACETAMINOPHEN 325 MG TABLET PO PRN (11:30)
[2018-07-11] MEDS ORDERED: morphine INJ 10 MG/ML 1ML (SYR OR VIAL) IV PRN (11:30)
[2018-07-11 12:15] VITALS: BP 114/63
--- NOTE | 2018-07-11 12:18 | Progress Note-Post Operative ---
Post-Operative Progess Note Surgeon (s)/Packing Shed Supervisor (s) Surgeon MINOR SCHWARTZ MD Packing Shed Supervisor: none Pre-Operative Diagnosis dysphagia, screening colonoscopy Post-Operative Diagnosis reflux esophagitis(stage 3) with distal esophageal stricture. no HH, moderate gastritis. moderate sigmoid diverticulosis. Procedure & Operative Findings Date of Procedure 07/11/18 Procedure Performed/Findings EGD with bx and balloon dilatation. Colonoscopy. Anesthesia Type CS Estimated Blood Loss Estimated blood loss (mL): minimal Specimens/Packing Specimens Removed GE jxn, antrum MINOR SCHWARTZ MD Jul 11, 2018 12:18 pm
[2018-07-11] MEDS ORDERED: PANT40TA2 PO (12:19)
--- NOTE | 2018-07-11 12:19 | Discharge Inst-Surgical ---
D/C Lap Instructions-KIDO New, Converted, or Re-Newed RX: RX on Chart Follow Up PRN Activity as tolerated High Fiber Diet 25g or more per day Avoid Alcohol, Caffeine, Spicy [place] and Acid foods. Drink 64 fluid oz or more of fluids per day. Symptoms to Report: Fever over 101 degree F, Nausea/Vomiting If any problems/questions: Contact your physician or go to Emergency Room MINOR SCHWARTZ MD Jul 11, 2018 12:19 pm
[2018-07-11 12:50] VITALS: BP 109/75
[2018-07-11 12:55] VITALS: BP 109/75
--- NOTE | 2018-07-11 14:08 | OPERATIVE REPORT ---
DATE OF SERVICE: 07/11/2018 ATTENDING PRIMARY CARE PHYSICIAN: Dr. Jorge L Oakley. PREOPERATIVE DIAGNOSES: Gastroesophageal reflux disease, dysphagia, screening colonoscopy. POSTOPERATIVE DIAGNOSES: Reflux esophagitis stage III with a distal esophageal stricture and Schatzki's ring. No hiatal hernia. Moderate severity gastritis and no distal obstructions. No significant hemorrhoids identified. Moderate sigmoid diverticulosis. PROCEDURE: EGD with biopsy and balloon dilatation. Colonoscopy. SURGEON: Minor Santos MD. ANESTHESIA: Conscious sedation. ESTIMATED BLOOD LOSS: Minimal. FINDINGS: EGD: Reflux esophagitis grade III with a distal esophageal stricture and Schatzki's ring. No hiatal hernia. Moderate severity gastritis with no formal ulcerations, polyps or any neoplasms. Pylorus and duodenum appeared normal with no distal obstructions. Colonoscopy: No significant hemorrhoids identified. There was moderate sigmoid diverticulosis with no mucosal inflammatory change to indicate any active diverticulitis. The remainder of the colon was normal. There were no polyps or any neoplasms identified. DISPOSITION: The patient tolerated the procedure well. INDICATIONS: The patient is an 82-year-old female who presented with dysphagia for the past year, which has worsened in the past month. She reports substernal chest pressure sensation especially with eating lean meats as well as breads. She has also a longstanding history of gastroesophageal reflux disease and peptic ulcer disease and has been taking omeprazole for the past 20 years. She does not report any hematemesis or coffee ground emesis. She also is in need of a screening colonoscopy. Her last colonoscopy was greater than 10 years ago. She also does have a personal history of malignancy with a lymphoma diagnosed in 2001 with a reoccurrence in 2011. She was medically treated with chemotherapy. DESCRIPTION OF PROCEDURE: The patient was brought to the endoscopy suite, laid in the left lateral decubitus position with head slightly elevated. After adequate IV pain and sedative medications and conscious sedation anesthesia, the mouthpiece was applied. The endoscope was then placed in the mouth visualizing the pharynx and hypopharyngeal region. Vocal cords, epiglottis and vallecula identified and appeared to be normal. The endoscope was then gently intubated. The esophageal opening and esophagus insufflated. The endoscope was then advanced to the first, second and third portion of the esophagus. At the level of the GE junction, a reflux esophagitis stage III identified with a distal esophageal stricture and Schatzki's ring. There were no ulcerations or any neoplasms identified. A biopsy was taken using forceps with visualization of good hemostasis. The endoscope was then advanced into the stomach and the endoscope retroflexed, visualizing the distal esophageal stricture. There was no hiatal hernia identified. There was a moderate severity gastritis more towards the stomach antrum; however, no formal ulcerations, polyps or any neoplasms. A biopsy was taken of the antrum for H. pylori with visualization of good hemostasis. The endoscope was then advanced to the pylorus and the first and second portion of the duodenum, which appeared normal with no distal obstructions. The endoscope was then slowly withdrawn while taking a second look and suctioning of residual air with no additional findings. We then proceeded with a balloon dilatation of the distal esophageal stricture. The balloon was placed into the stomach and pulled back to the area of the stricture. We first proceeded with 2 atmospheres of pressure or 18 mm in luminal diameter with mild resistance. We then proceeded to 4 atmospheres of pressure or 19 mm in luminal diameter with moderate resistance and left this in place for approximately 60 seconds. The balloon was then desufflated and removed. There were no mucosal tears identified as well as no bleeding. The endoscope was then slowly withdrawn while taking a second look and suctioning of residual air with no additional findings. The patient tolerated this portion of the procedure well. We will recommend the necessary lifestyle and diet accommodation including small and more frequent meals, avoidance of eating at night as well as head elevation while lying supine. She also needs to avoid caffeinated beverages, spicy, greasy and acidic foods. We will also start her on Protonix 40 mg daily. If she does become symptomatic again, we will recommend a graded dilatation and slightly increase the luminal diameter over time. Under the same anesthesia, we then proceeded with colonoscopy portion of procedure. A digital rectal examination was performed, which revealed no significant hemorrhoids. Normal sphincter tone was felt and there were no palpable masses. The endoscope was then intubated into the anus and rectum gently insufflated. The endoscope was then advanced through the valves of Painter of the rectum with no polyps or any neoplasms identified. We then proceeded to the sigmoid colon where a moderate sigmoid diverticulosis identified. The endoscope was then advanced through the remainder of the descending, transverse and ascending colon to cecum. No significant polyps or any neoplasms or mucosal inflammatory changes identified. The endoscope was then slowly withdrawn while taking a second look and suctioning of residual air with no additional findings. The patient tolerated the procedure well. We will recommend a high fiber diet with at least 25 grams of fiber per day as well as copious amounts of water to promote soft stools on a daily basis. She does not need another colonoscopy for another 10 years; however, sooner if she becomes symptomatic. Job ID: [id number] DocumentID: [id number] Dictated Date: 07/11/2018 12:13:59 Museum Tour Guide Date: 07/11/2018 14:07:36 Dictated By: MINOR SANTOS MD
== END 2018-07-11 12:57 | disposition home or self-care (01) ==
LOC: ENDO 09:46
PROVIDERS: ATTEND Surgery
DX: Z12.11 Encounter for screening for malignant neoplasm of colon (principal); K57.30 Diverticulosis of large intestine without perforation or abscess without bleeding; K21.0 Gastro-esophageal reflux disease with esophagitis; K22.2 Esophageal obstruction; K29.70 Gastritis, unspecified, without bleeding; C85.90 Non-Hodgkin lymphoma, unspecified, unspecified site; E03.9 Hypothyroidism, unspecified; Z87.891 Personal history of nicotine dependence; Z79.899 Other long term (current) drug therapy
CPT/HCPCS: 43239; 43249; G0121

== ENCOUNTER → 2018-09-21 | Outpatient (CLI) | payer MEDICARE, MEDICAID ==
[~2018-09-21] MED LIST changes: +PANT40TA2 PO
== END ==
LOC: CARD 08:45
PROVIDERS: ATTEND Internal Medicine Cardiovascular Disease
DX: Z09 Encounter for follow-up examination after completed treatment for conditions other than malignant neoplasm (principal); E03.9 Hypothyroidism, unspecified; C85.80 Other specified types of non-Hodgkin lymphoma, unspecified site; K21.9 Gastro-esophageal reflux disease without esophagitis; I08.1 Rheumatic disorders of both mitral and tricuspid valves
CPT/HCPCS: 93306

== ENCOUNTER 2018-10-08 12:39 | Outpatient (RCR) | payer MEDICARE, MEDICAID ==
[2018-08-06 13:02] LABS: BASOPHILS % (AUTO) 1 % (0-10); EOSINOPHILS # (AUTO) 0.1 10^3/uL (0.0-0.3); EOSINOPHILS % (AUTO) 1 % (0-10); HEMATOCRIT 38 % (35-52); HEMOGLOBIN 12.8 G/DL (11.5-16.0); LYMPHOCYTES # (AUTO) 3.4 X 10^3 (1.0-4.0); LYMPHOCYTES % (AUTO) 43 % (12-44); MEAN CORPUSCULAR HEMOGLOBIN 31 PG (25-34); MEAN CORPUSCULAR HGB CONC 34 G/DL (32-36); MEAN CORPUSCULAR VOLUME 93 FL (80-99); MEAN PLATELET VOLUME 10.5 FL (7.4-10.4); MONOCYTES % (AUTO) 24 % (0-12); NEUTROPHILS # (AUTO) 2.5 X 10^3 (1.8-7.8); NEUTROPHILS % (AUTO) 31 % (42-75); PLATELET COUNT 125 10^3/uL (130-400); RED CELL DISTRIBUTION WIDTH 14.4 % (10.0-14.5)
[2018-08-06 13:22] LABS: ALANINE AMINOTRANSFERASE 11 U/L (0-55); ALKALINE PHOSPHATASE 96 U/L (40-136); BILIRUBIN,TOTAL 0.8 MG/DL (0.1-1.0); BUN/CREATININE RATIO 12; CALCIUM 10.3 MG/DL (8.5-10.1); CARBON DIOXIDE 28 MMOL/L (21-32); CHLORIDE 102 MMOL/L (98-107); GFR ESTIMATED 60; GLUCOSE 120 MG/DL (70-105); POTASSIUM 3.5 MMOL/L (3.6-5.0); SODIUM 140 MMOL/L (135-145); TOTAL PROTEIN 8.4 GM/DL (6.4-8.2)
[2018-10-08 12:56] LABS: BASOPHILS % (AUTO) 1 % (0-10); EOSINOPHILS # (AUTO) 0.1 10^3/uL (0.0-0.3); EOSINOPHILS % (AUTO) 1 % (0-10); HEMATOCRIT 30 % (35-52); LYMPHOCYTES # (AUTO) 2.2 X 10^3 (1.0-4.0); LYMPHOCYTES % (AUTO) 38 % (12-44); MEAN CORPUSCULAR HEMOGLOBIN 31 PG (25-34); MEAN CORPUSCULAR HGB CONC 33 G/DL (32-36); MEAN CORPUSCULAR VOLUME 95 FL (80-99); MEAN PLATELET VOLUME 10.8 FL (7.4-10.4); MONOCYTES # (AUTO) 1.5 X 10^3 (0.0-1.0); MONOCYTES % (AUTO) 26 % (0-12); NEUTROPHILS % (AUTO) 34 % (42-75); PLATELET COUNT 128 10^3/uL (130-400); RED CELL DISTRIBUTION WIDTH 14.6 % (10.0-14.5); WHITE BLOOD COUNT 5.8 10^3/uL (4.3-11.0)
[2018-10-08 13:20] LABS: ALBUMIN 4.2 GM/DL (3.2-4.5); BILIRUBIN,TOTAL 1.1 MG/DL (0.1-1.0); CALCIUM 9.4 MG/DL (8.5-10.1); CREATININE SERUM 0.9 MG/DL (0.60-1.30); POTASSIUM 3.9 MMOL/L (3.6-5.0); TOTAL PROTEIN 7.8 GM/DL (6.4-8.2)
== END 2018-11-04 | disposition home or self-care (01) ==
LOC: ONC 12:39
PROVIDERS: ATTEND Internal Medicine Hematology & Oncology
DX: D69.3 Immune thrombocytopenic purpura (principal); Z85.72 Personal history of non-Hodgkin lymphomas; D72.821 Monocytosis (symptomatic); K21.9 Gastro-esophageal reflux disease without esophagitis; E03.9 Hypothyroidism, unspecified; M19.91 Primary osteoarthritis, unspecified site; Z79.52 Long term (current) use of systemic steroids; Z79.899 Other long term (current) drug therapy; Z92.21 Personal history of antineoplastic chemotherapy
CPT/HCPCS: 36415; 80053; 83615; 85025; 93005; 99213

== ENCOUNTER 2018-12-27 08:59 | Outpatient (RCR) | payer MEDICARE, MEDICAID ==
[2018-12-27 09:15] LABS: BASOPHILS # (AUTO) 0.1 10^3/uL (0.0-0.1); BASOPHILS % (AUTO) 1 % (0-10); EOSINOPHILS # (AUTO) 0.1 10^3/uL (0.0-0.3); EOSINOPHILS % (AUTO) 1 % (0-10); HEMATOCRIT 33 % (35-52); HEMOGLOBIN 11.1 G/DL (11.5-16.0); LYMPHOCYTES # (AUTO) 2.8 X 10^3 (1.0-4.0); LYMPHOCYTES % (AUTO) 37 % (12-44); MEAN CORPUSCULAR HEMOGLOBIN 30 PG (25-34); MEAN CORPUSCULAR HGB CONC 34 G/DL (32-36); MEAN CORPUSCULAR VOLUME 89 FL (80-99); MEAN PLATELET VOLUME 10.5 FL (7.4-10.4); MONOCYTES # (AUTO) 2.6 X 10^3 (0.0-1.0); MONOCYTES % (AUTO) 35 % (0-12); NEUTROPHILS % (AUTO) 26 % (42-75); PLATELET COUNT 156 10^3/uL (130-400); RED CELL DISTRIBUTION WIDTH 13.5 % (10.0-14.5); WHITE BLOOD COUNT 7.6 10^3/uL (4.3-11.0)
[2018-12-27 09:35] LABS: ALANINE AMINOTRANSFERASE 9 U/L (0-55); ALBUMIN 4.2 GM/DL (3.2-4.5); ALKALINE PHOSPHATASE 94 U/L (40-136); BILIRUBIN,TOTAL 0.5 MG/DL (0.1-1.0); BUN/CREATININE RATIO 21; CALCIUM 9.6 MG/DL (8.5-10.1); CARBON DIOXIDE 28 MMOL/L (21-32); CHLORIDE 101 MMOL/L (98-107); CREATININE SERUM 0.87 MG/DL (0.60-1.30); GFR ESTIMATED > 60; GLUCOSE 86 MG/DL (70-105); SODIUM 136 MMOL/L (135-145); TOTAL PROTEIN 7.6 GM/DL (6.4-8.2)
== END 2019-03-27 | disposition home or self-care (01) ==
LOC: ONC 08:59
PROVIDERS: ATTEND Internal Medicine Hematology & Oncology
DX: D69.3 Immune thrombocytopenic purpura (principal); Z85.72 Personal history of non-Hodgkin lymphomas; D72.821 Monocytosis (symptomatic); K21.9 Gastro-esophageal reflux disease without esophagitis; E03.9 Hypothyroidism, unspecified; M19.91 Primary osteoarthritis, unspecified site; Z79.52 Long term (current) use of systemic steroids; Z79.899 Other long term (current) drug therapy; Z92.21 Personal history of antineoplastic chemotherapy
CPT/HCPCS: 36415; 80053; 83615; 85025; 99213

== ENCOUNTER 2019-04-14 17:57 | Observation (INO) | payer MEDICARE, MEDICAID ==
[2019-04-14] VITALS (7 sets, daily range): BP systolic 110–135; BP diastolic 66–76
[~2019-04-14] VITALS: Ht 162.6 cm; Wt 47.8 kg
[2019-04-14] MEDS ORDERED: PATIENT MAY USE OWN MEDS, ALL PO SCH (19:00)
--- NOTE | 2019-04-14 19:15 | Progress Note - Hospitalist ---
Progress Note Pt accepted in transfer from [place] ED with platelet count of 11,000 and epistaxis. Admitted for transfusion. Under the care of Dr. Vargas. AGNES ZAZUETA MD Apr 14, 2019 19:15
[2019-04-14 19:33] LABS: BASOPHILS % (AUTO) 1 % (0-10); EOSINOPHILS # (AUTO) 0.1 10^3/uL (0.0-0.3); EOSINOPHILS % (AUTO) 1 % (0-10); HEMATOCRIT 33 % (35-52); HEMOGLOBIN 10.9 G/DL (11.5-16.0); LYMPHOCYTES # (AUTO) 4.1 X 10^3 (1.0-4.0); LYMPHOCYTES % (AUTO) 57 % (12-44); MEAN CORPUSCULAR HEMOGLOBIN 30 PG (25-34); MEAN CORPUSCULAR HGB CONC 33 G/DL (32-36); MEAN CORPUSCULAR VOLUME 91 FL (80-99); MEAN PLATELET VOLUME 11.2 FL (7.4-10.4); MONOCYTES # (AUTO) 2.2 X 10^3 (0.0-1.0); MONOCYTES % (AUTO) 31 % (0-12); NEUTROPHILS # (AUTO) 0.8 X 10^3 (1.8-7.8); NEUTROPHILS % (AUTO) 11 % (42-75); RED CELL DISTRIBUTION WIDTH 15.3 % (10.0-14.5); WHITE BLOOD COUNT 7.2 10^3/uL (4.3-11.0)
[2019-04-14] MEDS: NS IV 1000 ML 1,000 ML IV SCH (19:33)
[2019-04-14 19:34] LABS: PLATELET COUNT 18 10^3/uL (130-400)
[2019-04-14 19:42] LABS: PROTHROMBIN TIME PATIENT 13.7 SEC (12.2-14.7)
[2019-04-14 19:52] LABS: ALBUMIN 4.3 GM/DL (3.2-4.5); BILIRUBIN,TOTAL 0.6 MG/DL (0.1-1.0); CALCIUM 9.7 MG/DL (8.5-10.1); CREATININE SERUM 1.02 MG/DL (0.60-1.30); POTASSIUM 4.3 MMOL/L (3.6-5.0); TOTAL PROTEIN 7.6 GM/DL (6.4-8.2)
[2019-04-15] VITALS: BP 121/66
[2019-04-15 04:00] VITALS: BP 131/72
[2019-04-15 04:51] LABS: BASOPHILS % (AUTO) 1 % (0-10); EOSINOPHILS # (AUTO) 0.1 10^3/uL (0.0-0.3); EOSINOPHILS % (AUTO) 1 % (0-10); HEMATOCRIT 29 % (35-52); HEMOGLOBIN 9.4 G/DL (11.5-16.0); LYMPHOCYTES # (AUTO) 2.5 X 10^3 (1.0-4.0); LYMPHOCYTES % (AUTO) 50 % (12-44); MEAN CORPUSCULAR HEMOGLOBIN 30 PG (25-34); MEAN CORPUSCULAR HGB CONC 33 G/DL (32-36); MEAN CORPUSCULAR VOLUME 91 FL (80-99); MEAN PLATELET VOLUME 12.2 FL (7.4-10.4); MONOCYTES % (AUTO) 40 % (0-12); NEUTROPHILS # (AUTO) 0.4 X 10^3 (1.8-7.8); NEUTROPHILS % (AUTO) 8 % (42-75); RED CELL DISTRIBUTION WIDTH 15.1 % (10.0-14.5); WHITE BLOOD COUNT 4.9 10^3/uL (4.3-11.0)
[2019-04-15 04:56] LABS: PLATELET COUNT 26 10^3/uL (130-400)
[2019-04-15 05:06] LABS: BUN/CREATININE RATIO 16; CALCIUM 9.2 MG/DL (8.5-10.1); CARBON DIOXIDE 25 MMOL/L (21-32); CHLORIDE 105 MMOL/L (98-107); CREATININE SERUM 0.85 MG/DL (0.60-1.30); GFR ESTIMATED > 60; GLUCOSE 86 MG/DL (70-105); POTASSIUM 4.1 MMOL/L (3.6-5.0); SODIUM 139 MMOL/L (135-145)
[2019-04-15 08:00] VITALS: BP 115/55
[2019-04-15] MEDS ORDERED: PANT40TA3 PO (08:56)
--- NOTE | 2019-04-15 08:57 | NUR ---
WENT OVER THE EXT MED HX WITH THE PATIENT AND SHE VERIFIED HOW SHE TAKES HER MEDS. SHE HAS HER TRAVEL SICKNESS AND LEVOTHYROXINE HERE WITH HER BUT STATES AT HOME SHE ALSO TAKES PROTONIX.
--- NOTE | 2019-04-15 10:04 | History & Physical-Hospitalist ---
History of Present Illness HPI/Chief Complaint Pt is an 83yoCF with with a PMH of lymphoma and lkikely ITP who presented to outside ER due to nose bleeding and was found to have severe thrombocytopenia. She states this has been going on for 1 year and she as seen Dr Vargas for it but was unable to keep her most recent appointment because she has had vertigo and was unable to drive in for it. She states she's unsure why she has low platelets and does not take any medications for it. She denies any worsening bruising or bleeding. Source: patient Date Seen 04/15/19 Time Seen by a Provider: 10:04 Attending Physician Ariadne Quintanilla MD PCP Tian Saleh DO Referring Physician Date of Admission Apr 14, 2019 at 19:11 Home Medications & Allergies Home Medications Reviewed patient Home Medication Reconciliation performed by pharmacy medication reconciliations automotive paint technician and/or nursing. Patients Allergies have been reviewed. Allergies Allergies Coded Allergies No Known Drug Allergies (Lewlxdmkzt20/5/18) Past Saqiild-Xjeiez-Nkdjnh Hx Past Med/Social Hx: Reviewed Nursing Past Med/Soc Hx Patient Social History Alcohol Use: Rarely Uses Number of Drinks Today: 0 Recreational Drug Use: No Former Smoker, Quit: Jul 06, 2007 Physical Abuse Screen: No Sexual Abuse: No Recent Foreign Travel: No Contact w/other who traveled: No Recent Hopitalizations: No Recent Infectious Disease Expo: No Immunizations Up To Date Tetanus Booster (TDap): Unknown Pediatric: Yes Date of Influenza Vaccine: Jun 25, 2018 Seasonal Allergies Seasonal Allergies: No Past Medical History Currently Using CPAP: No Currently Using BIPAP: No Neurological: Vertigo Reproductive: No Sexually Transmitted Disease: No HIV/AIDS: No Gastrointestinal: Gastroesophageal Reflux Musculoskeletal: Rheumatoid Arthritis Loss of Vision: Bilateral Hearing Impairment: Denies Cancer: Lymphoma Did You Recieve Any Treatments: Yes What Type of Treatment Did You: Chemotherapy History of Blood Disorders: No Adverse Reaction to Blood Hendrix: No (N/A) Family History Reviewed Nursing Family Hx Asthma 19 MOTHER No Pertinent Family Hx Review of Systems Constitutional: No chills; dizziness; No fever, No weakness EENTM: no symptoms reported; No dental problems Respiratory: no symptoms reported Cardiovascular: no symptoms reported Gastrointestinal: no symptoms reported Genitourinary: no symptoms reported Musculoskeletal: no symptoms reported Skin: no symptoms reported Psychiatric/Neurological: No Symptoms Reported Physical Exam Physical Exam Vital Signs Vital Signs - First Documented 04/14/19 19:20 Temp 98.6 Pulse 82 Resp 18 B/P (MAP) 135/66 (89) Pulse Ox 98 O2 Delivery Room Air Capillary Refill : Height, Weight, BMI Height: 5'4.00" Weight: 105lbs. 6.0oz. 47.932444fw; 18.1 BMI Method: General Appearance: No Apparent Distress, WD/WN HEENT: Moist Mucous Membranes; No Scleral Icterus (L), No Scleral Icterus (R) Respiratory: Lungs Clear, No Respiratory Distress Cardiovascular: Regular Rate, Rhythm, No JVD, No Murmur Gastrointestinal: Normal Bowel Sounds, Non Tender, Soft Extremity: No Calf Tenderness, No Pedal Edema Neurologic/Psychiatric: Alert, Oriented x3, Normal Mood/Affect Skin: Normal Color, Warm/Dry, Petechia Results Results/Procedures Labs Patient resulted labs reviewed. Assessment/Plan Admission Diagnosis thrombocytopenia Admission Status: Observation Diagnosis/Problems Diagnosis/Problems (1) Thrombocytopenia Assessment & Plan: Plts 18 and up to 26 after transfusion Heme/Onc Consulted, appreciate recs (2) Epistaxis Assessment & Plan: due to thrombocytopenia Now resolved Consider ENT consult if recurrent Clinical Quality Measures DVT/VTE Risk/Contraindication: Risk Factor Score Per Nursin RFS Level Per Nursing on Admit: 2=Moderate Contraindications-Pharm: Other *list below* Contraindications-Mechi: Other *list below* Other: low platelets RUTH ANN NEGRON MD Apr 15, 2019 10:04
[2019-04-15] MEDS ORDERED: predniSONE 10 MG TAB PO NR (10:45)
[2019-04-15] MEDS ORDERED: predniSONE 20 MG TAB PO NR (10:45)
[2019-04-15] MEDS: NS IV 1000 ML 1,000 ML IV SCH (11:51)
[2019-04-15 12:00] VITALS: BP 153/65
--- NOTE | 2019-04-15 13:09 | Short Stay Summary-Hospitalist ---
History of Present Illness HPI/Chief Complaint Pt is an 83yoCF with with a PMH of lymphoma and lkikely ITP who presented to outside ER due to nose bleeding and was found to have severe thrombocytopenia. She states this has been going on for 1 year and she as seen Dr Vargas for it but was unable to keep her most recent appointment because she has had vertigo and was unable to drive in for it. She states she's unsure why she has low platelets and does not take any medications for it. She denies any worsening bruising or bleeding. Date Seen 04/15/19 Time Seen by a Provider: 09:00 Attending Physician Ariadne Quintanilla MD PCP Tian Saleh DO Referring Physician Date of Admission Apr 14, 2019 at 7:11 pm Home Medications & Allergies Home Medications Reviewed patient Home Medication Reconciliation performed by pharmacy medication reconciliations instrumentation and controls technician and/or nursing. Patients Allergies have been reviewed. Allergies Allergies Coded Allergies No Known Drug Allergies (Prgamgljzv08/5/18) Past Ffozecw-Yfobca-Pijapo Hx Past Med/Social Hx: Reviewed Nursing Past Med/Soc Hx Patient Social History Alcohol Use: Rarely Uses Number of Drinks Today: 0 Recreational Drug Use: No Former Smoker, Quit: Jul 06, 2007 Physical Abuse Screen: No Sexual Abuse: No Recent Foreign Travel: No Contact w/other who traveled: No Recent Hopitalizations: No Recent Infectious Disease Expo: No Immunizations Up To Date Tetanus Booster (TDap): Unknown Pediatric: Yes Date of Influenza Vaccine: Jun 25, 2018 Seasonal Allergies Seasonal Allergies: No Past Medical History Currently Using CPAP: No Currently Using BIPAP: No Neurological: Vertigo Reproductive: No Sexually Transmitted Disease: No HIV/AIDS: No Gastrointestinal: Gastroesophageal Reflux Musculoskeletal: Rheumatoid Arthritis Loss of Vision: Bilateral Hearing Impairment: Denies Cancer: Lymphoma Did You Recieve Any Treatments: Yes What Type of Treatment Did You: Chemotherapy History of Blood Disorders: No Adverse Reaction to Blood Hendrix: No (N/A) Family History Reviewed Nursing Family Hx Asthma 19 MOTHER No Pertinent Family Hx Review of Systems Constitutional: no symptoms reported EENTM: see HPI Respiratory: no symptoms reported Cardiovascular: no symptoms reported Gastrointestinal: no symptoms reported Genitourinary: no symptoms reported Musculoskeletal: no symptoms reported Skin: No change in color, No lesions Psychiatric/Neurological: No Symptoms Reported Physical Exam Physical Exam Vital Signs Vital Signs - First Documented 04/14/19 19:20 Temp 98.6 Pulse 82 Resp 18 B/P (MAP) 135/66 (89) Pulse Ox 98 O2 Delivery Room Air Capillary Refill : Height, Weight, BMI Height: 5'4.00" Weight: 105lbs. 6.0oz. [id number]; 18.1 BMI Method: General Appearance: No Apparent Distress, WD/WN HEENT: Moist Mucous Membranes; No Scleral Icterus (L), No Scleral Icterus (R) Respiratory: Lungs Clear, No Respiratory Distress Cardiovascular: Regular Rate, Rhythm, No JVD, No Murmur Gastrointestinal: Normal Bowel Sounds, Non Tender, Soft Extremity: No Calf Tenderness, No Pedal Edema Neurologic/Psychiatric: Alert, Oriented x3, Normal Mood/Affect Skin: Normal Color, Warm/Dry, Petechia Results Results/Procedures Labs Patient resulted labs reviewed. Short Stay Diagnosis Discharge Diagnosis-Short Stay Admission Diagnosis thrombocytopenia Final Discharge Diagnosis ITP Conclusion Plan ITP Status post platelet transfusion Hematology consult discussed with Dr. Martínez- will start on steroid Will follow up with as an outpatient with Dr. Martínez with whom she is still established Discussed bleeding precautions and return precautions Diagnosis/Problems Diagnosis/Problems (1) Thrombocytopenia Assessment & Plan: Plts 18 and up to 26 after transfusion Heme/Onc Consulted, appreciate recs (2) Epistaxis Assessment & Plan: due to thrombocytopenia Now resolved Consider ENT consult if recurrent Clinical Quality Measures DVT/VTE Risk/Contraindication: Risk Factor Score Per Nursin RFS Level Per Nursing on Admit: 2=Moderate Contraindications-Pharm: Other *list below* Contraindications-Mechi: Other *list below* Other: low platelets RUTH ANN NEGRON MD Apr 15, 2019 13:09
[2019-04-15] MEDS ORDERED: PRD50T PO (13:10)
--- NOTE | 2019-04-15 13:13 | Discharge Inst-Simple/Standard ---
Discharge Inst-Standard Discharge Medications New, Converted or Re-Newed RX: Call to Patients Pharmacy Patient Instructions/Follow Up Plan of Care/Instructions/FU: Please take your medications as written. Please follow up with Dr Vargas as scheduled. Activity as Tolerated: Yes Discharge Diet: No Restrictions Return to The Hospital For: Recurremt bleeding, chest pain, shortness of breath, if you feel you are getting worse. Planned Outpatient Orders/Ref. Pneu Vac Indicated: Yes RUTH ANN NEGRON MD Apr 15, 2019 1:13 pm
[2019-04-15 13:42] VITALS: BP 153/65
--- NOTE | 2019-04-15 20:00 | CONSULTATION REPORT ---
DATE OF SERVICE: 04/15/2019 THE PATIENT IS ADMITTED TO ROOM: 407. PHYSICIAN REQUESTING CONSULTATION: Carly Onofre MD IMPRESSION: 1. An 83-year-old female admitted to the hospital with epistaxis and thrombocytopenia, status post transfusion with one unit of platelets. 2. History of ITP diagnosed in 11/2017 and treated with high dose steroids with normalization of platelet count. 3. Recent upper respiratory infection, probably viral, which could have triggered recurrence of ITP. 4. History of non-Hodgkin's lymphoma, T-cell rich large B-cell type, initially diagnosed and treated in 1999 with a recurrence in 2012, again requiring chemotherapy. RECOMMENDATIONS: 1. Agree with a platelet transfusion because of epistaxis. This has stopped since this past weekend. 2. We will start the patient on prednisone 50 mg p.o. every morning and monitor platelet count twice weekly on an outpatient basis. 3. [facility] 1 [facility]. 4. Prednisone orders were sent to her pharmacy in [place] and lab work was arranged in [place] also. 5. Okay to discharge the patient home from a hematology standpoint. If she is having any bleeding or other symptoms, she was instructed to come back to the hospital. BRIEF HISTORY: The patient is an 83-year-old female who has not felt well over the past two weeks with a sore throat and ear pain. The past one or two days she started having epistaxis, and was brought to the emergency room by her family. She was evaluated and not noted to have thrombocytopenia with a platelet count 11,000 at [facility]. She was transferred to [facility] and a repeat CBC showed platelet count of 18,000. She was admitted for further management and transfused with one unit of platelets yesterday. Repeat CBC this morning showed a platelet count of 26,000. Hematology consultation was requested for further recommendations and management. PAST MEDICAL HISTORY: Significant for diagnosis of ITP in 11/2017 when she presented with a platelet count of 0, epistaxis, and a bone marrow evaluation confirmed the diagnosis. She was treated with high dose steroids, which were weaned off in 6 to 7 weeks with normalization of platelet count. She has done well until the current admission for thrombocytopenia. She also has history of non-Hodgkin's lymphoma, T-cell rich large B-cell type, initially diagnosed in 2000 and treated with chemotherapy using CHOP regimen in [place]. She was noted with a recurrence in 2013 and was treated with bendamustine and Rituxan for four cycles followed by maintenance Rituxan for two years. She has been on surveillance with no evidence of recurrent disease since then. She also has hypothyroidism, atrial fibrillation, osteoarthritis. PAST SURGICAL HISTORY: Include tonsillectomy and adenoidectomy, appendectomy, lymph node biopsy from the left neck in 2000, TAHBSO in 2001, repeat left neck lymph node biopsy in 2012. SOCIAL HISTORY: The patient is and lives in [place], [place]. She has three children, a son and 2 daughters, all of whom live close by. 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 She has a history of alcohol and tobacco socially when she was young. No history of recreational drug use. FAMILY HISTORY: Unremarkable except for her brother with lung cancer in his late 60s. PHYSICAL EXAMINATION: GENERAL: Today showed an elderly female, thin appearing, awake and oriented, in no acute distress. VITAL SIGNS: Temperature was 98.2, pulse rate of 82, respirations 20, blood pressure 153/65 with oxygen saturation of 99% on room air. HEENT: Normocephalic, extraocular muscles intact, conjunctivae pink, oral mucosa moist without lesions. NECK: Supple, with no JVD. No cervical, supraclavicular, axillary or inguinal lymphadenopathy palpable. CHEST: Symmetrical. LUNGS: Clear to auscultation without wheezes or rales. CARDIOVASCULAR: Regular with occasional missed beats. No murmurs or gallops heard. ABDOMEN: Soft, nontender with no hepatosplenomegaly or other masses palpable. EXTREMITIES: Showed no edema. Few fading petechiae noted. NEUROLOGIC: Grossly intact without focal motor deficits. LABORATORY DATA: I reviewed her CBC done last evening at the hospital. This showed WBC 7.2, hemoglobin 10.9, platelet count 18,000 with neutrophil count of 0.8, lymphocyte count 4.1 and monocyte count 2.2. Repeat CBC done today morning showed white count 4.9, hemoglobin 9.4, platelet count 26,000 with neutrophil count 0.4, lymphocyte count 2.5 and monocyte count 2.0. Chemistry panel done yesterday showed normal electrolytes. BUN was 17 and creatinine 1.02 with a GFR of 52 mL per minute. Liver function studies were within normal limits. Repeat BMP done today morning showed a BUN of 14 and creatinine 0.85 with GFR more than 60 mL per minute. Protime was 13.7 with INR of 1.0. Thank you for allowing me to participate in this patient's care. I will follow the patient with you and make appropriate recommendations. Job ID: [id number] DocumentID: [id number] Dictated Date: 04/15/2019 16:10:37 Director Of Recreation Therapy Date: 04/15/2019 19:59:31 Dictated By: ELDER DAVIS MD
== END 2019-04-15 13:13 | disposition home or self-care (01) ==
LOC: 4TH 19:11 → UNDOADMOB 19:11 → 4TH 19:12 → UNDODISOB 04-15 13:44
PROVIDERS: ADMIT Internal Medicine; ATTEND Internal Medicine
DX: D69.3 Immune thrombocytopenic purpura (principal); R04.0 Epistaxis; R42 Dizziness and giddiness; K21.9 Gastro-esophageal reflux disease without esophagitis; M06.9 Rheumatoid arthritis, unspecified; C85.90 Non-Hodgkin lymphoma, unspecified, unspecified site; Z92.21 Personal history of antineoplastic chemotherapy; Z87.891 Personal history of nicotine dependence; Z66 Do not resuscitate
CPT/HCPCS: 36415; 80048; 80053; 85025; 85610; G0378

== ENCOUNTER 2019-06-17 10:26 | Outpatient (RCR) | payer MEDICARE, MEDICAID ==
[2019-04-23 15:01] LABS: BASOPHILS % (AUTO) 0 % (0-10); EOSINOPHILS % (AUTO) 0 % (0-10); HEMATOCRIT 36 % (35-52); HEMOGLOBIN 12.1 G/DL (11.5-16.0); LYMPHOCYTES % (AUTO) 35 % (12-44); MEAN CORPUSCULAR HEMOGLOBIN 30 PG (25-34); MEAN CORPUSCULAR HGB CONC 33 G/DL (32-36); MEAN CORPUSCULAR VOLUME 90 FL (80-99); MEAN PLATELET VOLUME 10.3 FL (7.4-10.4); MONOCYTES # (AUTO) 0.6 X 10^3 (0.0-1.0); MONOCYTES % (AUTO) 6 % (0-12); NEUTROPHILS % (AUTO) 59 % (42-75); PLATELET COUNT 86 10^3/uL (130-400); RED CELL DISTRIBUTION WIDTH 15.2 % (10.0-14.5); WHITE BLOOD COUNT 8.6 10^3/uL (4.3-11.0)
[2019-04-23 15:19] LABS: ALANINE AMINOTRANSFERASE 12 U/L (0-55); ALBUMIN 4.6 GM/DL (3.2-4.5); ALKALINE PHOSPHATASE 74 U/L (40-136); BILIRUBIN,TOTAL 0.5 MG/DL (0.1-1.0); BUN/CREATININE RATIO 22; CALCIUM 9.8 MG/DL (8.5-10.1); CARBON DIOXIDE 28 MMOL/L (21-32); CHLORIDE 100 MMOL/L (98-107); CREATININE SERUM 0.94 MG/DL (0.60-1.30); GFR ESTIMATED 57; GLUCOSE 118 MG/DL (70-105); POTASSIUM 4.2 MMOL/L (3.6-5.0); SODIUM 137 MMOL/L (135-145)
[2019-05-20 09:37] LABS: BASOPHILS % (AUTO) 0 % (0-10); EOSINOPHILS % (AUTO) 1 % (0-10); HEMATOCRIT 37 % (35-52); HEMOGLOBIN 12.2 G/DL (11.5-16.0); LYMPHOCYTES # (AUTO) 2.4 X 10^3 (1.0-4.0); LYMPHOCYTES % (AUTO) 40 % (12-44); MEAN CORPUSCULAR HEMOGLOBIN 30 PG (25-34); MEAN CORPUSCULAR HGB CONC 33 G/DL (32-36); MEAN CORPUSCULAR VOLUME 90 FL (80-99); MONOCYTES # (AUTO) 1.4 X 10^3 (0.0-1.0); MONOCYTES % (AUTO) 23 % (0-12); NEUTROPHILS # (AUTO) 2.2 X 10^3 (1.8-7.8); NEUTROPHILS % (AUTO) 36 % (42-75); PLATELET COUNT 142 10^3/uL (130-400); RED CELL DISTRIBUTION WIDTH 15.1 % (10.0-14.5)
[2019-05-20 10:00] LABS: ALBUMIN 4.3 GM/DL (3.2-4.5); BILIRUBIN,TOTAL 0.7 MG/DL (0.1-1.0); CALCIUM 9.6 MG/DL (8.5-10.1); CREATININE SERUM 0.98 MG/DL (0.60-1.30); POTASSIUM 4.3 MMOL/L (3.6-5.0)
[~2019-06-17 10:26] MED LIST changes: +OMEP-280 PO; -OMEP20CA12 PO; +PANT40TA3 PO; +PRD50T PO
[2019-06-17 10:41] LABS: BASOPHILS % (AUTO) 0 % (0-10); EOSINOPHILS % (AUTO) 0 % (0-10); HEMATOCRIT 34 % (35-52); LYMPHOCYTES # (AUTO) 3.1 X 10^3 (1.0-4.0); LYMPHOCYTES % (AUTO) 41 % (12-44); MEAN CORPUSCULAR HEMOGLOBIN 30 PG (25-34); MEAN CORPUSCULAR HGB CONC 33 G/DL (32-36); MEAN CORPUSCULAR VOLUME 92 FL (80-99); MEAN PLATELET VOLUME 9.6 FL (7.4-10.4); MONOCYTES # (AUTO) 1.7 X 10^3 (0.0-1.0); MONOCYTES % (AUTO) 22 % (0-12); NEUTROPHILS # (AUTO) 2.8 X 10^3 (1.8-7.8); NEUTROPHILS % (AUTO) 37 % (42-75); PLATELET COUNT 205 10^3/uL (130-400); RED CELL DISTRIBUTION WIDTH 16.2 % (10.0-14.5); WHITE BLOOD COUNT 7.7 10^3/uL (4.3-11.0)
[2019-06-17 11:05] LABS: ALBUMIN 4.3 GM/DL (3.2-4.5); BILIRUBIN,TOTAL 0.6 MG/DL (0.1-1.0); CALCIUM 9.7 MG/DL (8.5-10.1); CREATININE SERUM 0.93 MG/DL (0.60-1.30); POTASSIUM 4.3 MMOL/L (3.6-5.0); TOTAL PROTEIN 7.5 GM/DL (6.4-8.2)
== END 2019-07-22 | disposition home or self-care (01) ==
LOC: ONC 10:26
PROVIDERS: ATTEND Internal Medicine Hematology & Oncology
DX: D69.3 Immune thrombocytopenic purpura (principal); Z85.72 Personal history of non-Hodgkin lymphomas; D72.821 Monocytosis (symptomatic); K21.9 Gastro-esophageal reflux disease without esophagitis; E03.9 Hypothyroidism, unspecified; M19.91 Primary osteoarthritis, unspecified site; Z79.52 Long term (current) use of systemic steroids; Z79.899 Other long term (current) drug therapy; Z92.21 Personal history of antineoplastic chemotherapy
CPT/HCPCS: 36415; 80053; 83615; 85025; 99213

== ENCOUNTER 2019-10-14 10:02 | Outpatient (RCR) | payer MEDICARE, MEDICAID ==
[2019-07-29 09:02] LABS: BASOPHILS # (AUTO) 0.1 10^3/uL (0.0-0.1); BASOPHILS % (AUTO) 1 % (0-10); EOSINOPHILS # (AUTO) 0.1 10^3/uL (0.0-0.3); EOSINOPHILS % (AUTO) 1 % (0-10); HEMATOCRIT 33 % (35-52); LYMPHOCYTES # (AUTO) 3.5 X 10^3 (1.0-4.0); LYMPHOCYTES % (AUTO) 49 % (12-44); MEAN CORPUSCULAR HGB CONC 33 G/DL (32-36); MEAN CORPUSCULAR VOLUME 92 FL (80-99); MEAN PLATELET VOLUME 10.3 FL (7.4-10.4); MONOCYTES # (AUTO) 2.2 X 10^3 (0.0-1.0); MONOCYTES % (AUTO) 31 % (0-12); NEUTROPHILS # (AUTO) 1.3 X 10^3 (1.8-7.8); NEUTROPHILS % (AUTO) 18 % (42-75); PLATELET COUNT 150 10^3/uL (130-400); RED CELL DISTRIBUTION WIDTH 14.9 % (10.0-14.5); WHITE BLOOD COUNT 7.1 10^3/uL (4.3-11.0)
[2019-07-29 09:03] LABS: MEAN CORPUSCULAR HEMOGLOBIN 30 PG (25-34)
[2019-07-29 09:20] LABS: ALBUMIN 4.2 GM/DL (3.2-4.5); BILIRUBIN,TOTAL 0.7 MG/DL (0.1-1.0); CALCIUM 9.4 MG/DL (8.5-10.1); CREATININE SERUM 1.01 MG/DL (0.60-1.30); POTASSIUM 4.3 MMOL/L (3.6-5.0); TOTAL PROTEIN 7.3 GM/DL (6.4-8.2)
[2019-10-14 10:21] LABS: BASOPHILS # (AUTO) 0.1 10^3/uL (0.0-0.1); BASOPHILS % (AUTO) 1 % (0-10); EOSINOPHILS # (AUTO) 0.1 10^3/uL (0.0-0.3); EOSINOPHILS % (AUTO) 1 % (0-10); HEMATOCRIT 36 % (35-52); HEMOGLOBIN 11.8 G/DL (11.5-16.0); LYMPHOCYTES # (AUTO) 3.6 X 10^3 (1.0-4.0); LYMPHOCYTES % (AUTO) 52 % (12-44); MEAN CORPUSCULAR HEMOGLOBIN 29 PG (25-34); MEAN CORPUSCULAR HGB CONC 33 G/DL (32-36); MEAN CORPUSCULAR VOLUME 89 FL (80-99); MEAN PLATELET VOLUME 10.4 FL (7.4-10.4); MONOCYTES % (AUTO) 28 % (0-12); NEUTROPHILS # (AUTO) 1.2 X 10^3 (1.8-7.8); NEUTROPHILS % (AUTO) 18 % (42-75); PLATELET COUNT 159 10^3/uL (130-400); RED CELL DISTRIBUTION WIDTH 15.2 % (10.0-14.5); WHITE BLOOD COUNT 6.9 10^3/uL (4.3-11.0)
[2019-10-14 10:49] LABS: ALANINE AMINOTRANSFERASE 7 U/L (0-55); ALBUMIN 4.6 GM/DL (3.2-4.5); ALKALINE PHOSPHATASE 95 U/L (40-136); BILIRUBIN,TOTAL 0.5 MG/DL (0.1-1.0); BUN/CREATININE RATIO 13; CALCIUM 9.5 MG/DL (8.5-10.1); CARBON DIOXIDE 27 MMOL/L (21-32); CHLORIDE 102 MMOL/L (98-107); CREATININE SERUM 0.94 MG/DL (0.60-1.30); GFR ESTIMATED 57; GLUCOSE 93 MG/DL (70-105); POTASSIUM 3.8 MMOL/L (3.6-5.0); SODIUM 139 MMOL/L (135-145)
== END 2019-10-27 | disposition home or self-care (01) ==
LOC: ONC 10:02
PROVIDERS: ATTEND Internal Medicine Hematology & Oncology
DX: C85.80 Other specified types of non-Hodgkin lymphoma, unspecified site (principal); D69.3 Immune thrombocytopenic purpura; D72.821 Monocytosis (symptomatic); I48.91 Unspecified atrial fibrillation; Z79.899 Other long term (current) drug therapy; Z79.52 Long term (current) use of systemic steroids
CPT/HCPCS: 36415; 80053; 83615; 85025; 99213

== ENCOUNTER 2021-05-21 08:47 | Outpatient (CLI) | payer MEDICARE, MEDICAID ==
[~2021-05-21 08:47] MED LIST changes: -OMEP-280 PO; +OMEP20CA18 PO; -PANT40TA3 PO; +PANT40TA52 PO
[2021-05-21 09:05] VITALS: BP 135/75
[2021-05-21 10:27] LABS: BASOPHILS % (AUTO) 1 % (0-10); EOSINOPHILS % (AUTO) 0 % (0-10); HEMATOCRIT 28 % (35-52); HEMOGLOBIN 8.8 g/dL (11.5-16.0); LYMPHOCYTES # (AUTO) 3.8 10^3/uL (1.0-4.0); LYMPHOCYTES % (AUTO) 60 % (12-44); MEAN CORPUSCULAR HEMOGLOBIN 31 pg (25-34); MEAN CORPUSCULAR HGB CONC 32 g/dL (32-36); MEAN CORPUSCULAR VOLUME 96 fL (80-99); MEAN PLATELET VOLUME 10.9 fL (9.0-12.2); MONOCYTES # (AUTO) 0.9 10^3/uL (0.0-1.0); MONOCYTES % (AUTO) 14 % (0-12); NEUTROPHILS # (AUTO) 1.6 10^3/uL (1.8-7.8); NEUTROPHILS % (AUTO) 25 % (42-75); PLATELET COUNT 56 10^3/uL (130-400); WHITE BLOOD COUNT 6.4 10^3/uL (4.3-11.0)
[2021-05-21 20:54] LABS: HEPATITIS C ANTIBODY C Non-Reactive (Non-Reactive)
== END 2021-05-21 11:00 | disposition home or self-care (01) ==
LOC: SDC 08:47
PROVIDERS: ATTEND Internal Medicine Hematology & Oncology
DX: D69.3 Immune thrombocytopenic purpura (principal)
CPT/HCPCS: 36569; 76937; 80074; 85025; 86703; C1751; 36415

== ENCOUNTER → 2021-08-17 | Outpatient (RCR) | payer MEDICARE, MEDICAID ==
[2021-05-19 13:38] LABS: BASOPHILS % (AUTO) 0 % (0-10); EOSINOPHILS % (AUTO) 0 % (0-10); HEMATOCRIT 31 % (35-52); LYMPHOCYTES # (AUTO) 6.7 10^3/uL (1.0-4.0); LYMPHOCYTES % (AUTO) 73 % (12-44); MEAN CORPUSCULAR HEMOGLOBIN 31 pg (25-34); MEAN CORPUSCULAR HGB CONC 33 g/dL (32-36); MEAN CORPUSCULAR VOLUME 95 fL (80-99); MEAN PLATELET VOLUME 10.9 fL (9.0-12.2); MONOCYTES # (AUTO) 1.9 10^3/uL (0.0-1.0); MONOCYTES % (AUTO) 21 % (0-12); NEUTROPHILS # (AUTO) 0.4 10^3/uL (1.8-7.8); NEUTROPHILS % (AUTO) 5 % (42-75); WHITE BLOOD COUNT 9.1 10^3/uL (4.3-11.0)
[2021-05-19 13:40] LABS: PLATELET COUNT 33 10^3/uL (130-400)
[2021-05-19 13:56] LABS: ALBUMIN 4.2 GM/DL (3.2-4.5); BILIRUBIN,TOTAL 0.7 MG/DL (0.1-1.0); CALCIUM 9.6 MG/DL (8.5-10.1); CREATININE SERUM 0.99 MG/DL (0.60-1.30); POTASSIUM 4.3 MMOL/L (3.6-5.0); TOTAL PROTEIN 7.7 GM/DL (6.4-8.2)
[2021-05-25 09:16] LABS: BASOPHILS % (AUTO) 0 % (0-10); EOSINOPHILS % (AUTO) 0 % (0-10); HEMATOCRIT 31 % (35-52); HEMOGLOBIN 9.8 g/dL (11.5-16.0); MEAN CORPUSCULAR HGB CONC 32 g/dL (32-36); MEAN PLATELET VOLUME 10.5 fL (9.0-12.2)
[2021-05-25 09:18] LABS: LYMPHOCYTES # (AUTO) 7.6 10^3/uL (1.0-4.0); LYMPHOCYTES % (AUTO) 65 % (12-44); MEAN CORPUSCULAR HEMOGLOBIN 30 pg (25-34); MEAN CORPUSCULAR VOLUME 93 fL (80-99); MONOCYTES # (AUTO) 1.2 10^3/uL (0.0-1.0); MONOCYTES % (AUTO) 11 % (0-12); NEUTROPHILS # (AUTO) 2.6 10^3/uL (1.8-7.8); NEUTROPHILS % (AUTO) 22 % (42-75); PLATELET COUNT 86 10^3/uL (130-400); WHITE BLOOD COUNT 11.7 10^3/uL (4.3-11.0)
[2021-05-25 09:33] LABS: CALCIUM 9.5 MG/DL (8.5-10.1); CREATININE SERUM 0.88 MG/DL (0.60-1.30)
[2021-06-01 09:00] LABS: BASOPHILS % (AUTO) 0 % (0-10); EOSINOPHILS % (AUTO) 0 % (0-10); HEMATOCRIT 36 % (35-52); HEMOGLOBIN 11.5 g/dL (11.5-16.0); LYMPHOCYTES # (AUTO) 3.8 10^3/uL (1.0-4.0); LYMPHOCYTES % (AUTO) 43 % (12-44); MEAN CORPUSCULAR HEMOGLOBIN 29 pg (25-34); MEAN CORPUSCULAR HGB CONC 32 g/dL (32-36); MEAN CORPUSCULAR VOLUME 91 fL (80-99); MEAN PLATELET VOLUME 10.2 fL (9.0-12.2); MONOCYTES # (AUTO) 1.3 10^3/uL (0.0-1.0); MONOCYTES % (AUTO) 15 % (0-12); NEUTROPHILS # (AUTO) 3.5 10^3/uL (1.8-7.8); NEUTROPHILS % (AUTO) 40 % (42-75); PLATELET COUNT 167 10^3/uL (130-400); WHITE BLOOD COUNT 8.7 10^3/uL (4.3-11.0)
[2021-06-01 09:16] LABS: CALCIUM 9.7 MG/DL (8.5-10.1); CREATININE SERUM 0.89 MG/DL (0.60-1.30); POTASSIUM 4.3 MMOL/L (3.6-5.0)
[2021-06-08 09:09] LABS: BASOPHILS % (AUTO) 0 % (0-10); EOSINOPHILS % (AUTO) 0 % (0-10); MEAN CORPUSCULAR VOLUME 91 fL (80-99); PLATELET COUNT 111 10^3/uL (130-400); WHITE BLOOD COUNT 6.3 10^3/uL (4.3-11.0)
[2021-06-08 09:11] LABS: HEMATOCRIT 31 % (35-52); HEMOGLOBIN 9.9 g/dL (11.5-16.0); LYMPHOCYTES # (AUTO) 3.3 10^3/uL (1.0-4.0); LYMPHOCYTES % (AUTO) 53 % (12-44); MEAN CORPUSCULAR HEMOGLOBIN 30 pg (25-34); MEAN CORPUSCULAR HGB CONC 33 g/dL (32-36); MEAN PLATELET VOLUME 9.9 fL (9.0-12.2); MONOCYTES # (AUTO) 1.5 10^3/uL (0.0-1.0); MONOCYTES % (AUTO) 24 % (0-12); NEUTROPHILS # (AUTO) 1.4 10^3/uL (1.8-7.8); NEUTROPHILS % (AUTO) 23 % (42-75)
[2021-06-08 09:25] LABS: CALCIUM 9.1 MG/DL (8.5-10.1); CREATININE SERUM 0.81 MG/DL (0.60-1.30)
[2021-06-15 09:15] LABS: BASOPHILS % (AUTO) 0 % (0-10); EOSINOPHILS % (AUTO) 0 % (0-10); HEMATOCRIT 31 % (35-52); HEMOGLOBIN 10.2 g/dL (11.5-16.0); LYMPHOCYTES # (AUTO) 3.4 10^3/uL (1.0-4.0); LYMPHOCYTES % (AUTO) 50 % (12-44); MEAN CORPUSCULAR HEMOGLOBIN 30 pg (25-34); MEAN CORPUSCULAR HGB CONC 33 g/dL (32-36); MEAN CORPUSCULAR VOLUME 91 fL (80-99); MEAN PLATELET VOLUME 10.8 fL (9.0-12.2); MONOCYTES % (AUTO) 30 % (0-12); NEUTROPHILS # (AUTO) 1.3 10^3/uL (1.8-7.8); NEUTROPHILS % (AUTO) 20 % (42-75); PLATELET COUNT 151 10^3/uL (130-400); WHITE BLOOD COUNT 6.8 10^3/uL (4.3-11.0)
[2021-06-15 09:34] LABS: CALCIUM 9.5 MG/DL (8.5-10.1); CREATININE SERUM 0.94 MG/DL (0.60-1.30); POTASSIUM 4.2 MMOL/L (3.6-5.0)
[2021-06-22 09:49] LABS: BASOPHILS % (AUTO) 0 % (0-10); EOSINOPHILS % (AUTO) 0 % (0-10); HEMATOCRIT 29 % (35-52); HEMOGLOBIN 9.4 g/dL (11.5-16.0); LYMPHOCYTES # (AUTO) 3.2 10^3/uL (1.0-4.0); LYMPHOCYTES % (AUTO) 55 % (12-44); MEAN CORPUSCULAR HEMOGLOBIN 30 pg (25-34); MEAN CORPUSCULAR HGB CONC 33 g/dL (32-36); MEAN CORPUSCULAR VOLUME 91 fL (80-99); MEAN PLATELET VOLUME 10.5 fL (9.0-12.2); MONOCYTES # (AUTO) 1.6 10^3/uL (0.0-1.0); MONOCYTES % (AUTO) 28 % (0-12); NEUTROPHILS % (AUTO) 17 % (42-75); PLATELET COUNT 194 10^3/uL (130-400); WHITE BLOOD COUNT 5.9 10^3/uL (4.3-11.0)
[2021-06-22 09:51] LABS: ALBUMIN 3.9 GM/DL (3.2-4.5); BILIRUBIN,TOTAL 0.8 MG/DL (0.1-1.0); CALCIUM 9.2 MG/DL (8.5-10.1); CREATININE SERUM 0.89 MG/DL (0.60-1.30); POTASSIUM 4.3 MMOL/L (3.6-5.0); TOTAL PROTEIN 7.4 GM/DL (6.4-8.2)
[2021-07-06 10:21] LABS: BASOPHILS % (AUTO) 1 % (0-10); EOSINOPHILS % (AUTO) 0 % (0-10); HEMATOCRIT 33 % (35-52); HEMOGLOBIN 10.7 g/dL (11.5-16.0); LYMPHOCYTES # (AUTO) 4.5 10^3/uL (1.0-4.0); LYMPHOCYTES % (AUTO) 55 % (12-44); MEAN CORPUSCULAR HEMOGLOBIN 30 pg (25-34); MEAN CORPUSCULAR HGB CONC 33 g/dL (32-36); MEAN CORPUSCULAR VOLUME 93 fL (80-99); MEAN PLATELET VOLUME 10.2 fL (9.0-12.2); MONOCYTES # (AUTO) 2.1 10^3/uL (0.0-1.0); MONOCYTES % (AUTO) 26 % (0-12); NEUTROPHILS # (AUTO) 1.4 10^3/uL (1.8-7.8); NEUTROPHILS % (AUTO) 18 % (42-75); PLATELET COUNT 210 10^3/uL (130-400); WHITE BLOOD COUNT 8.2 10^3/uL (4.3-11.0)
[2021-07-20 09:22] LABS: BASOPHILS % (AUTO) 1 % (0-10); EOSINOPHILS % (AUTO) 0 % (0-10); HEMATOCRIT 33 % (35-52); HEMOGLOBIN 10.7 g/dL (11.5-16.0); LYMPHOCYTES # (AUTO) 4.6 10^3/uL (1.0-4.0); LYMPHOCYTES % (AUTO) 58 % (12-44); MEAN CORPUSCULAR HEMOGLOBIN 30 pg (25-34); MEAN CORPUSCULAR HGB CONC 32 g/dL (32-36); MEAN CORPUSCULAR VOLUME 94 fL (80-99); MEAN PLATELET VOLUME 10.3 fL (9.0-12.2); MONOCYTES # (AUTO) 2.1 10^3/uL (0.0-1.0); MONOCYTES % (AUTO) 26 % (0-12); NEUTROPHILS # (AUTO) 1.1 10^3/uL (1.8-7.8); NEUTROPHILS % (AUTO) 15 % (42-75); PLATELET COUNT 160 10^3/uL (130-400); WHITE BLOOD COUNT 7.9 10^3/uL (4.3-11.0)
[2021-08-03 09:29] LABS: BASOPHILS % (AUTO) 0 % (0-10); EOSINOPHILS % (AUTO) 1 % (0-10); HEMATOCRIT 33 % (35-52); HEMOGLOBIN 10.7 g/dL (11.5-16.0); LYMPHOCYTES % (AUTO) 61 % (12-44); MEAN CORPUSCULAR HEMOGLOBIN 30 pg (25-34); MEAN CORPUSCULAR HGB CONC 33 g/dL (32-36); MEAN CORPUSCULAR VOLUME 93 fL (80-99); MEAN PLATELET VOLUME 10.6 fL (9.0-12.2); MONOCYTES % (AUTO) 24 % (0-12); NEUTROPHILS # (AUTO) 1.1 10^3/uL (1.8-7.8); NEUTROPHILS % (AUTO) 13 % (42-75); PLATELET COUNT 178 10^3/uL (130-400); WHITE BLOOD COUNT 8.2 10^3/uL (4.3-11.0)
[~2021-08-17] VITALS: Ht 165.1 cm; Wt 45.8 kg
[~2021-08-17] MED LIST changes: +ACETAMINOPHEN 325 MG TAB (TYLENOL) CANCER CTR ONE; +ACETAMINOPHEN 325 MG TAB (TYLENOL) CANCER CTR PO PRN; +ACETAMINOPHEN 500 MG TAB (TYLENOL) CANCER CTR PO PRN; +CENTER ONLY IV SCH; +IMMU GLOBULIN,GAMMA (IGG) 100 ML IV SCH; +IMMU GLOBULIN,GAMMA (IGG) 50 ML IV SCH; +IMMUNE GLOBULIN,GAMMA (IGG) 200 ML IV SCH; +NS IV 1000 ML (CANCER CTR) 1,000 ML ONE; +NS IV SCH; +RITUXIMAB ABBS IV SCH; +diphenhydrAMINE 25 MG TAB (BENADRYL) CANCER CENTER PO SCH; +diphenhydrAMINE 50 MG/ML INJ (CANCER CENTER) ONE
[2021-08-17 09:11] LABS: BASOPHILS % (AUTO) 1 % (0-10); EOSINOPHILS % (AUTO) 1 % (0-10); HEMATOCRIT 33 % (35-52); HEMOGLOBIN 11.1 g/dL (11.5-16.0); LYMPHOCYTES # (AUTO) 4.1 10^3/uL (1.0-4.0); LYMPHOCYTES % (AUTO) 55 % (12-44); MEAN CORPUSCULAR HEMOGLOBIN 31 pg (25-34); MEAN CORPUSCULAR HGB CONC 33 g/dL (32-36); MEAN CORPUSCULAR VOLUME 94 fL (80-99); MEAN PLATELET VOLUME 10.5 fL (9.0-12.2); MONOCYTES # (AUTO) 1.8 10^3/uL (0.0-1.0); MONOCYTES % (AUTO) 24 % (0-12); NEUTROPHILS # (AUTO) 1.5 10^3/uL (1.8-7.8); NEUTROPHILS % (AUTO) 20 % (42-75); PLATELET COUNT 174 10^3/uL (130-400); WHITE BLOOD COUNT 7.5 10^3/uL (4.3-11.0)
[2021-08-17 09:42] LABS: ALBUMIN 4.2 GM/DL (3.2-4.5); BILIRUBIN,TOTAL 0.7 MG/DL (0.1-1.0); CALCIUM 9.3 MG/DL (8.5-10.1); CREATININE SERUM 0.86 MG/DL (0.60-1.30); POTASSIUM 4.2 MMOL/L (3.6-5.0)
== END | disposition home or self-care (01) ==
LOC: EDSTATUS 10-28 14:02 → ONC 05-19 12:56
PROVIDERS: ATTEND Internal Medicine Hematology & Oncology
DX: Z51.11 Encounter for antineoplastic chemotherapy (principal); C83.30 Diffuse large B-cell lymphoma, unspecified site; D69.3 Immune thrombocytopenic purpura; K92.2 Gastrointestinal hemorrhage, unspecified; E03.9 Hypothyroidism, unspecified; Z92.21 Personal history of antineoplastic chemotherapy
CPT/HCPCS: 80053; 83615; 85025; 96365; 96366; G0463; 36415; 36591; 80048; 96375; 96413; 96415; 99213; J1569